=== PATIENT | male | born 1940 | race Caucasian/White ===

== ENCOUNTER 2016-09-29 17:52 | Emergency (ER) | payer OTHER ==
[~2016-09-29] VITALS: Ht 172.7 cm; Wt 70.3 kg
--- NOTE | 2016-09-29 17:52 | NUR ---
Patient was BIBA and taken to bed 07 via gurney per EMS.
[2016-09-29 17:55] VITALS: BP 122/70
--- NOTE | 2016-09-29 18:15 | NUR ---
PATIENT PRESENTS TO ED WITH dizziness . PT STATES felt faint when attempting to get out of his car . DENIES N/V/D; SKIN IS PINK/WARM/DRY; AAOX4 WITH EVEN AND STEADY GAIT; LUNGS CLEAR BL; HR EVEN AND REGULAR; PT DENIES ANY FEVER, CP, SOB, OR COUGH AT THIS TIME; PATIENT STATES PAIN OF 0/10 AT THIS TIME; VSS; PATIENT POSITIONED FOR COMFORT; HOB ELEVATED; BEDRAILS UP X2; BED DOWN. ER MD MADE AWARE OF PT STATUS.
[2016-09-29] MEDS ORDERED: NACL 0.9% 500 ML IV ONE (18:40)
--- NOTE | 2016-09-29 18:52 | NUR ---
XRAY AT BEDSIDE.
--- NOTE | 2016-09-29 18:57 | NUR ---
Dr. Machuca evaluating patient at bedside.
[2016-09-29 19:10] LABS: BASOPHILS # (AUTO) 0.1 K/uL (0.00-0.22); EOSINOPHILS # (AUTO) 0.6 K/uL (0-0.4); EOSINOPHILS % (AUTO) 5.4 % (0.0-4.0); HEMATOCRIT 39.6 % (36-52); LYMPHOCYTES % (AUTO) 9.2 % (20.5-51.1); MEAN CORPUSCULAR HEMOGLOBIN 30 pg (27-31); MEAN CORPUSCULAR HGB CONC 33 g/dL (33-37); MEAN CORPUSCULAR VOLUME 91 fL (80-94); MONOCYTES # (AUTO) 1.1 K/uL (0.8-1.0); MONOCYTES % (AUTO) 9.8 % (1.7-9.3); NEUTROPHILS # (AUTO) 7.9 K/uL (1.8-7.7); NEUTROPHILS % (AUTO) 74.6 % (42.2-75.2); PLATELET COUNT (AUTO) 262 K/uL (140-450); RED BLOOD CELL COUNT(AUTO) 4.34 MIL/uL (4.20-6.10); RED CELL DISTRIBUTION WIDTH 16.7 % (11.6-13.7); WHITE BLOOD COUNT (AUTO) 10.7 K/uL (4.8-10.8)
[2016-09-29] MEDS ORDERED: MULTIVITAMIN 1 TAB PO ONE (19:10)
[2016-09-29] MEDS ORDERED: THIAMINE 200 MG/2 ML VIAL IV ONE (19:10)
[2016-09-29 19:26] LABS: ANION GAP 12.5 (8-16); CARBON DIOXIDE 26.4 mmol/L (21-32); CHLORIDE 102 mmol/L (98-107); CREATININE 0.8 mg/dL (0.6-1.3); GLUCOSE 79 mg/dL (74-106); POTASSIUM 3.9 mmol/L (3.5-5.1); SODIUM SERUM 137 mmol/L (136-145); UREA NITROGEN, BLOOD 10 mg/dL (7-18)
[2016-09-29 19:27] LABS: INR 2.3 (0.8-1.2); PARTIAL THROMBOPLASTIN TIME 35.9 secs (22-35.6)
[2016-09-29 19:29] LABS: AMPHETAMINE, URINE NEG. ng/ml (NEG <=1000); BARBITURATE, URINE NEG. ng/ml (NEG <=200); BENZODIAZEPINE, URINE NEG. ng/mL (NEG <=200); CANNABINOID, URINE POS. ng/mL (NEG <=50); COCAINE, URINE NEG. ng/mL (NEG <=300); OPIATE, URINE NEG. ng/mL (NEG <=2000); PHENCYCLIDINE SCREEN,URINE NEG. ng/mL (NEG <=25)
[2016-09-29 19:35] LABS: ALANINE AMINOTRANSFERASE 37 U/L (12-78); ALBUMIN 2.9 g/dL (3.4-5.0); ALKALINE PHOSPHATASE 96 U/L (46-116); ASPARTATE AMINOTRANSFERASE 30 U/L (15-37); TOTAL BILIRUBIN 0.3 mg/dL (0.0-1.0); TOTAL PROTEIN, SERUM 6.7 g/dL (6.4-8.2)
[2016-09-29] MEDS ORDERED: MULTIVITAMIN-12 10 ML, THIAMINE 100 MG, MAGNESIUM SULFATE 50% 2,000 MG, FOLIC ACID 5 MG... IV ONE ×5 (20:20)
[2016-09-29] MEDS ORDERED: MULTIVITAMIN-12 10 ML VIAL IV ONE ×2 (20:24→20:29)
[2016-09-29] MEDS ORDERED: FOLIC ACID 5 MG/ML SYR ONE ×2 (20:25→20:29)
[2016-09-29] MEDS ORDERED: MAGNESIUM SULFATE 50% 1000 MG/2 ML VIAL IV ONE (20:29)
[2016-09-29] MEDS ORDERED: THIAMINE 200 MG/2 ML VIAL ONE (20:29)
[2016-09-29 22:37] VITALS: BP 127/68
--- NOTE | 2016-09-29 22:38 | NUR ---
Patient discharged with v/s stable. Written and verbal after care instructions given and explained. Patient alert, oriented and verbalized understanding of instructions. Ambulatory with steady gait. All questions addressed prior to discharge. ID band removed. Patient advised to follow up with PMD. NO Rx WERE given. Patient educated on indication of medication including possible reaction and side effects. Opportunity to ask questions provided and answered.
[2016-09-30] MEDS ORDERED: FOLIC ACID 1 MG TAB PO SCH (09:00)
== END 2016-09-29 22:37 | disposition home or self-care (01) ==
LOC: MED 17:52
DX: R55 Syncope and collapse (principal); F10.20 Alcohol dependence, uncomplicated; Y90.6 Blood alcohol level of 120-199 mg/100 ml; I10 Essential (primary) hypertension; F17.210 Nicotine dependence, cigarettes, uncomplicated; Z86.718 Personal history of other venous thrombosis and embolism
CPT/HCPCS: 36415; 70450; 71010; 80053; 80305; 81002; 83880; 84484; 85025; 85610; 85730; 93005; 96361; 96365; 96366; 96375; 99285; A9153; G0482; J3411; J3475; J3490; J7030; Q0092

== ENCOUNTER 2019-10-08 06:48 | Emergency (ER) | payer OTHER ==
[~2019-10-08] VITALS: Ht 200.7 cm; Wt 59.0 kg
[2019-10-08 06:58] VITALS: BP 96/50
--- NOTE | 2019-10-08 07:05 | NUR ---
PT TAKEN TO BED 7
--- NOTE | 2019-10-08 07:07 | NUR ---
79 YO MALE BIB SELF C/C OF 910 LEFT FLANK PAIN AND BLOOD IN URINE X9 DAYS. PT STATES THAT HE HAD PROSTATE SURGERY 3 WEEKS AGO. PT STATES THAT HE TOOK OTC IBUPROFEN FOR PAIN WITH NO RELIEF. MED HX: COPD, HTN, "BORDERLINE DIABTETIC" PER PATIENT RX: PRADAXA, BP AND CHOLESTEROL MEDICATIONS - UNABLE TO SAY WHICH RX NKA
--- NOTE | 2019-10-08 07:20 | NUR ---
PATIENT AMBULATED TO RESTROOM
--- NOTE | 2019-10-08 07:22 | NUR ---
GAVE REPORT TO VINI RN FOR CONTINUITY OF CARE
--- NOTE | 2019-10-08 07:30 | NUR ---
Dr. Lemos is evaluating the patient at bedside.
[2019-10-08] MEDS ORDERED: fentaNYL 0.05 MG/ML VIAL IVP ONE (07:35)
[2019-10-08] MEDS ORDERED: NACL 0.9% 1,000 ML IV ONE (07:40)
--- NOTE | 2019-10-08 07:40 | NUR ---
PT. TAKEN TO CT VIA [facility]
--- NOTE | 2019-10-08 07:43 | NUR ---
PATIENT TAKEN TO CT VIA [facility]
[2019-10-08] MEDS ORDERED: cefTRIAXone 1,000 MG VIAL ONE (08:57)
[2019-10-08 09:00] LABS: BASOPHILS % (AUTO) 0.3 % (0.0-2.0); EOSINOPHILS % (AUTO) 0.2 % (0.0-4.0); HEMATOCRIT 35.3 % (36-52); HEMOGLOBIN 11.6 g/dL (12.0-18.0); LYMPHOCYTES # (AUTO) 0.5 K/uL (2.0-11.5); LYMPHOCYTES % (AUTO) 4.9 % (20.5-51.1); MEAN CORPUSCULAR HEMOGLOBIN 31 pg (27-31); MEAN CORPUSCULAR HGB CONC 33 g/dL (33-37); MEAN CORPUSCULAR VOLUME 93.1 fL (80-94); MONOCYTES # (AUTO) 0.7 K/uL (0.8-1.0); MONOCYTES % (AUTO) 6.2 % (1.7-9.3); NEUTROPHILS # (AUTO) 9.4 K/uL (1.8-7.7); NEUTROPHILS % (AUTO) 88.4 % (42.2-75.2); PLATELET COUNT (AUTO) 255 K/uL (140-450); RED CELL DISTRIBUTION WIDTH 15.7 % (11.6-13.7); WHITE BLOOD COUNT (AUTO) 10.6 K/uL (4.8-10.8)
[2019-10-08 09:05] LABS: APPEARANCE,URINE CLOUDY (CLEAR); BILIRUBIN,URINE NEGATIVE (NEGATIVE); BLOOD, URINE 3+ (NEGATIVE); COLOR,URINE YELLOW (YELLOW); LEUKOCYTE ESTERASE ,URINE 3+ (NEGATIVE); NITRITE, URINE POSITIVE (NEGATIVE); PH,URINE 7.5 (5.0-9.0); UGLUCOSE NEGATIVE (NEGATIVE)
[2019-10-08 09:17] LABS: RBC,URINE 20-50 /HPF (0-5); WBC,URINE TOO MANY TO COUNT /HPF (0-5)
[2019-10-08 09:33] LABS: ALBUMIN 2.3 g/dL (3.4-5.0); ANION GAP 15.6 (8-16); ASPARTATE AMINOTRANSFERASE 36 U/L (15-37); CARBON DIOXIDE 22.9 mmol/L (21-32); CHLORIDE 99 mmol/L (98-107); CREATININE 1.5 mg/dL (0.6-1.3); GLUCOSE 140 mg/dL (74-106); POTASSIUM 4.5 mmol/L (3.5-5.1); SODIUM SERUM 133 mmol/L (136-145); TOTAL BILIRUBIN 0.5 mg/dL (0.0-1.0); UREA NITROGEN, BLOOD 32 mg/dL (7-18)
[2019-10-08] MEDS ORDERED: DEXAMETHASONE 4 MG/ML VIAL IVP ONE (09:35)
[2019-10-08] MEDS ORDERED: PROTHROMBIN COMPLEX HUMAN 500 UNITS KIT IV ONE (10:00)
[2019-10-08] MEDS ORDERED: HYDROcodone/APAP 5/325 MG 1 TAB TAB PO ONE (11:05)
[2019-10-08 11:53] VITALS: BP 161/53
--- NOTE | 2019-10-08 11:54 | NUR ---
Patient to be transferred to [facility]. Is being transferred due to . Receiving facility has accepting physician and available space. ER physician has signed transfer form. Patient or responsible democrat has agreed to transfer and signed form. Patient belongings inventoried and will be sent with patient. Copy of nursing notes, lab reports, EKG, Physicians Orders and X-rays to be sent with patient. Report called to at receiving facility. [facility]] ambulance service has been called for transfer. ETA is .
--- NOTE | 2019-10-09 05:36 | NUR ---
RECEIVED A POSITIVE BLOOD CUTLURE RESULT FROM LAB -- GRAM NEGATIVE RODS. DR MONROE MADE AWARE. NO FURTHER ACTION REQUIRED.
== END 2019-10-08 11:54 | disposition short-term general hospital (02) ==
LOC: MED 06:48
DX: I10 Essential (primary) hypertension (principal); S06.5X9A Traumatic subdural hemorrhage with loss of consciousness of unspecified duration, initial encounter; W18.39XA Other fall on same level, initial encounter; C61 Malignant neoplasm of prostate; N39.0 Urinary tract infection, site not specified; R41.0 Disorientation, unspecified; R31.9 Hematuria, unspecified; E11.9 Type 2 diabetes mellitus without complications; J44.9 Chronic obstructive pulmonary disease, unspecified; Z92.21 Personal history of antineoplastic chemotherapy; Y93.89 Activity, other specified; Y92.89 Other specified places as the place of occurrence of the external cause; Y99.8 Other external cause status
CPT/HCPCS: 36415; 70450; 71045; 74176; 80053; 81001; 81002; 83605; 85025; 85610; 85730; 86886; 86900; 86901; 87040; 87086; 87186; 96365; 96367; 96375; 99291; C9132; J0696; J1100; J3010; J7030; Q0092

== ENCOUNTER 2019-10-12 02:58 | Inpatient (IN) | payer OTHER, SELFPAY ==
[~2019-10-12] VITALS: Ht 170.2 cm; Wt 68.5 kg
[2019-10-12 03:03] VITALS: BP 104/46
--- NOTE | 2019-10-12 03:08 | NUR ---
PT AMBULATED TO BED 4.
--- NOTE | 2019-10-12 03:10 | NUR ---
79 Y/O PATIENT PRESENTS TO ER WITH C/O LEFT FLANK PAIN STARTING AT MIDDLE OF BACK TO LEFT FLANK X 10DAYS. 10/10 PAIN, DENIES INJURY, N/V/D; PT STATES HE HAD "PROSTATE SURGERY" 3 OR 4 WEEKS AGO, AND HAS BEEN CONTINENT SINCE. URINE SAMPLE WAS DARK RED. WILL CONTINUE TO MONITOR; SIDERAIL X1. PMH: COPD; LUNG CANCER NKDA
[2019-10-12] MEDS ORDERED: NACL 0.9% 1,000 ML IV ONE ×2 (03:15→06:40)
[2019-10-12] MEDS ORDERED: ONDANSETRON 4 MG/2 ML VIAL IVP ONE (03:20)
[2019-10-12] MEDS ORDERED: MORPHINE SULFATE 4 MG/ML SYR IVP ONE (03:20)
[2019-10-12 03:52] LABS: APPEARANCE,URINE HAZY (CLEAR); BILIRUBIN,URINE 2+ (NEGATIVE); BLOOD, URINE 3+ (NEGATIVE); COLOR,URINE RED (YELLOW); LEUKOCYTE ESTERASE ,URINE 3+ (NEGATIVE); NITRITE, URINE POSITIVE (NEGATIVE); PH,URINE 6.5 (5.0-9.0); UGLUCOSE TRACE (NEGATIVE)
--- NOTE | 2019-10-12 03:55 | NUR ---
PT WENT FOR CT
[2019-10-12 04:00] LABS: BASOPHILS # (AUTO) 0.1 K/uL (0.00-0.22); BASOPHILS % (AUTO) 0.5 % (0.0-2.0); EOSINOPHILS # (AUTO) 0.1 K/uL (0-0.4); EOSINOPHILS % (AUTO) 0.5 % (0.0-4.0); HEMATOCRIT 34.8 % (36-52); HEMOGLOBIN 11.4 g/dL (12.0-18.0); LYMPHOCYTES # (AUTO) 0.9 K/uL (2.0-11.5); LYMPHOCYTES % (AUTO) 4.8 % (20.5-51.1); MEAN CORPUSCULAR HEMOGLOBIN 30 pg (27-31); MEAN CORPUSCULAR HGB CONC 33 g/dL (33-37); MONOCYTES # (AUTO) 0.9 K/uL (0.8-1.0); MONOCYTES % (AUTO) 5.1 % (1.7-9.3); NEUTROPHILS % (AUTO) 89.1 % (42.2-75.2); PLATELET COUNT (AUTO) 300 K/uL (140-450); RED BLOOD CELL COUNT(AUTO) 3.78 MIL/uL (4.20-6.10)
[2019-10-12 04:36] LABS: RBC,URINE TOO NUMEROUS TO COUN /HPF (0-5); WBC,URINE 80-100 /HPF (0-5)
[2019-10-12 04:39] LABS: ALBUMIN 2.3 g/dL (3.4-5.0); ANION GAP 12.3 (8-16); ASPARTATE AMINOTRANSFERASE 37 U/L (15-37); CARBON DIOXIDE 23.1 mmol/L (21-32); CHLORIDE 97 mmol/L (98-107); CREATININE 1.5 mg/dL (0.6-1.3); GLUCOSE 122 mg/dL (74-106); LIPASE 38 U/L (73-393); POTASSIUM 4.4 mmol/L (3.5-5.1); SODIUM SERUM 128 mmol/L (136-145); TOTAL BILIRUBIN 0.6 mg/dL (0.0-1.0); UREA NITROGEN, BLOOD 34 mg/dL (7-18)
--- NOTE | 2019-10-12 04:43 | NUR ---
BLADDER SCAN DONE. 639ML IN BLADDER
[2019-10-12] MEDS ORDERED: cefTRIAXone 1,000 MG VIAL ONE (05:26)
[2019-10-12] MEDS ORDERED: ONDANSETRON 4 MG/2 ML VIAL IM/IVP PRN (06:20)
[2019-10-12] MEDS ORDERED: ACETAMINOPHEN 325 MG TAB PO PRN (06:20)
[2019-10-12] MEDS ORDERED: DOCUSATE SODIUM 100 MG GELCAP PO PRN ×2 (06:20→09:55)
[2019-10-12 07:25] VITALS: BP 100/67
--- NOTE | 2019-10-12 07:25 | NUR ---
RECEIVED PT. FROM ER NURSE. PT. IS AWAKE AND ALERT. PT. IS ABLE TO AMBULATE TOWARDS BED. IV ON THE RIGHT ARM 22G, PATENT AND ASYMPTOMATIC. PT. IS ON ROOM AIR WITH O2 STAT OF 100%. PT. COMPLAINS OF PAIN 8/10 FROM LEFT FLANK PAIN, WILL MEDICATE. REVIEWED PLAN OF CARE. PT. VERBALIZES UNDERSTANDING. CALL LIGHT WITHIN REACH. WILL CONTINUE TO MONITOR.
--- NOTE | 2019-10-12 07:25 | NUR ---
Patient will be admitted to care of DR. SMITH. Admited to MED SURG. Will go to room 105 B. Belongings list completed. Report to AUSTYN RANKIN.
[2019-10-12 07:35] LABS: BARBITURATE, URINE NEGATIVE ng/ml (NEG <=200); BENZODIAZEPINE, URINE NEGATIVE ng/mL (NEG <=200); CANNABINOID, URINE NEGATIVE ng/mL (NEG <=50); COCAINE, URINE NEGATIVE ng/mL (NEG <=300); OPIATE, URINE NEGATIVE ng/mL (NEG <=2000); PHENCYCLIDINE SCREEN,URINE NEGATIVE ng/mL (NEG <=25)
--- NOTE | 2019-10-12 08:00 | NUR ---
DR. JETT IS BY THE BEDSIDE, CONFIRMED PAIN MEDICATIONS, WILL FOLLOW THROUGH.
[2019-10-12] MEDS ORDERED: LIDOCAINE VISCOUS 2% 20 ML UDC PO SCH (08:15)
[2019-10-12] MEDS ORDERED: DICYCLOMINE HCL LIQUID 10 MG/5 ML UDC PO SCH (08:15)
[2019-10-12] MEDS ORDERED: ALUMINUM HYD/MAG/SIMETHICONE 30 ML UDC PO SCH (08:15)
[2019-10-12] MEDS: MORPHINE SULFATE 2 MG/ML SYR IVP PRN ×3 (08:18→20:30)
--- NOTE | 2019-10-12 08:18 | NUR ---
IV MORPHINE IVP GIVEN FOR PAIN SCALE OF 8/10 FROM LEFT FLANK PAIN. BP 100/67, HR 55. PT. IS GRIMACING AND SCREAMING ABOUT PAIN. WILL CONTINUE TO MONITOR.
[2019-10-12 08:23] LABS: PHOSPHORUS 3.1 mg/dL (2.5-4.9); THYROID STIMULATING HORMONE 5.85 uIU/mL (0.34-3.74)
[2019-10-12] MEDS ORDERED: LEVOFLOXACIN 500 MG/D5W PREMIX 100 ML IV SCH (09:00)
--- NOTE | 2019-10-12 09:20 | NUR ---
DR. DEL VALLE IS BY THE BEDSIDE. BLADDER SCAN DONE WITH RETENTION AMOUNT OF 800ML. DR. DEL VALLE REQUESTED FOR STEEL CATHETER INSERTION. WILL FOLLOW THROUGH
--- NOTE | 2019-10-12 09:30 | NUR ---
STEEL CATHETER 16F INSERTED BY DR. DEL VALLE. NEW ORDERS FROM DR. DEL VALLE TO IRRIGATE AND BLADDER SCAN PT. OFTEN. WILL FOLLOW THROUGH
[2019-10-12] MEDS ORDERED: TAMS0.4C96 PO (09:31)
[2019-10-12] MEDS ORDERED: BUDE1AER2 IH (09:31)
[2019-10-12] MEDS ORDERED: PRON INH (09:31)
[2019-10-12] MEDS: LACTOBACILLUS RHAMNOSUS GG 1 EACH CAP PO SCH (09:41)
[2019-10-12] MEDS: NACL 0.9% 1,000 ML IV SCH ×2 (09:46→22:56)
[2019-10-12] MEDS ORDERED: ALBUTEROL SULFATE/IPRATROPIU 3 ML SOL IH PRN (09:55)
[2019-10-12] MEDS ORDERED: DABI150C PO (10:00)
[2019-10-12] MEDS ORDERED: SPIMDI INH (10:00)
[2019-10-12] MEDS ORDERED: LOSA25TA43 PO (10:00)
[2019-10-12] MEDS ORDERED: ATOR40TA PO (10:00)
[2019-10-12] MEDS ORDERED: METO25TA PO (10:00)
[2019-10-12] MEDS ORDERED: DOCU-299 PO (10:00)
[2019-10-12] MEDS ORDERED: MULT-153 PO (10:00)
[2019-10-12] MEDS ORDERED: KETOROLAC 15 MG/ML VIAL IM SCH (10:30)
--- NOTE | 2019-10-12 11:10 | NUR ---
DISCHARGE PLANNING: THIS IS A 79 Y/O MALE PATIENT FROM HOME, WHO CAME IN DUE TO LEFT FLANK PAIN AND PAIN IN URINATION. PAST MEDICAL HISTORY INCLUDE LUNG CA, DVT BLE, COPD, DIABETES, HTN. INITIAL DIAGNOSIS OF PYELONEPHRITIS. UROLOGY CONSULT WITH DR. DEL VALLE IN PLACE, NOT SEEN YET. ON ROCEPHIN AND LEVOFLOXACIN. ABD/PELVIS CT SHOWED SEVERAL TINY RENAL CALCIFICATIONS. CXR NEGATIVE. DC PLAN BACK TO HOME ONCE STABLE. Addendum: 10/14/19 at 1133 by Mary Jason CM POST OP DAY #1 S/P CYSTOSCOPY, TURP BY DR. DEL VALLE 10/13/2019. FC IN PLACE. CURRENT LABS INCLUDE WBC 14.4, H/H 9.8/30.1, NA/K 133/4.4, BUN/CREA 18/1.1 AND LACTIC ACID 2.0. DC PLAN BACK TO HOME ONCE STABLE. Addendum: 10/16/19 at 1204 by Mary Jason CM LATE ENTRY FOR 10/15/2019: RECEIVED AN ORDER FOR SNF EVALUATION. CXR SHOWED THERE HAS BEEN INTERVAL DEVELOPMENT OF BILATERAL PERIPHERAL HAZY OPACITIES. SUGGEST CORRELATION WITH COVID 19. DR JETT MADE AWARE. DC ORDERED CANCELLED. PLACED ON ISOLATION AND TESTED PATIENT FOR COVID. Addendum: 10/16/19 at 1208 by Mary Jason CM COVID TEST PENDING. ON O2 AT 2 LPM/NC, O2 SAT 100%. ON ELIQUIS, ROCEPHIN, FLOMAX. NA/K 133/4.6, BUN/CREA 22/1.1 AND ALB 1.6. PULMO UROLOGY AND ID CONSULTS IN PLACE. Addendum: 10/21/19 at 1129 by Mary Jason CM RECEIVED AN ORDER FOR SNF FOR IV ANTIBIOTICS AND PT. REFERRAL SENT TO [facility] AND [facility]. Addendum: 10/21/19 at 1206 by Mary Jason PER MOO SANDOVAL [facility] THEY ARE ABLE TO ACCEPT THE PATIENT., WILL CALL ME BACK FOR ROOM NUMBER AND ACCEPTING DOCTOR. Addendum: 10/21/19 at 1355 by Mary Jason 1140: DC PLANNING DISCUSSED WITH PATIENT AND IS IN AGREEMENT. IMM AND CHOICE OF VENDOR DISCUSSED WITH HIM WELL, NO QUESTIONS AND CONCERNS AT THIS TIME. ORIGINAL PLACED IN THE CHART AND COPY PROVIDED TO THE PATIENT. Addendum: 10/21/19 at 1405 by Mary Jason CM PER MOO SANDOVAL [facility], PATIENT WILL GO TO ROOM 12A UNDER DR. RUSH AND THEY WILL ARRANGE TRANSPORT. SCADA ENGINEER WILL BE BETWEEN [phone]. PRIMARY AUSTYN ESCALONA MADE AWARE. DR. JETT MADE AWARE.
[2019-10-12 11:39] LABS: ANION GAP 12.5 (8-16); CARBON DIOXIDE 22.6 mmol/L (21-32); CHLORIDE 98 mmol/L (98-107); CREATININE 1.4 mg/dL (0.6-1.3); GLUCOSE 144 mg/dL (74-106); POTASSIUM 4.1 mmol/L (3.5-5.1); SODIUM SERUM 129 mmol/L (136-145); UREA NITROGEN, BLOOD 31 mg/dL (7-18)
[2019-10-12 11:45] LABS: PROTHROMBIN TIME 12.9 secs (10.8-13.4)
[2019-10-12 12:00] VITALS: BP 127/45
[2019-10-12] MEDS: NICOTINE TRANSD SYS 7 MG/24 HR PATCH TD SCH (12:25)
--- NOTE | 2019-10-12 15:01 | NUR ---
PAIN MEDICATIONS GIVEN FOR PAIN OF 8/10 LEFT FLANK PAIN, PT. IS GRIMACING AND SCREAMING ABOUT PAIN. BP 127/45, HR 65. BLADDER IRRIGATED, NO SIGNS OF DISTRESS NOTED WILL CONTINUE TO MONITOR.
[2019-10-12 16:00] VITALS: BP 135/52
[2019-10-12] MEDS ORDERED: hydrALAZINE 20 MG/ML VIAL IVP PRN (16:40)
--- NOTE | 2019-10-12 18:30 | NUR ---
PAIN MEDICATION GIVEN FOR STOMACH PAIN OF 8/10. NO SIGNS OF DISTRESS NOTED. WILL CONTINUE TO MONITOR.
[2019-10-12] MEDS: HYDROcodone/APAP 5/325 MG 1 TAB TAB PO PRN (18:34)
--- NOTE | 2019-10-12 19:10 | NUR ---
ENDORSED TO TABLE HAND NURSEBOBBY, FOR CONTINUITY OF CARE.
[2019-10-12] MEDS: BUDESONIDE 0.25 MG/2 ML NEBU INH SCH (19:30)
[2019-10-12] MEDS: ALBUTEROL SULFATE/IPRATROPIU 3 ML SOL IH SCH (19:30)
[2019-10-12 20:00] VITALS: BP 139/55
--- NOTE | 2019-10-12 20:15 | NUR ---
PATIENT MOANING IN PAIN, CHECKED W/ BLADDER SCAN HIGHEST VOLUME 104 ML.
--- NOTE | 2019-10-12 20:35 | NUR ---
PT IRRIGATED WITH STERILE SALINE SOLUTION AND ASPIRATED BACK, WITH CLEAR URINE AND BLOODISH TINGE WHEN ASPIRATED. WILL GIVE MORPHINE
[2019-10-12] MEDS ORDERED: NON-FORMULARY ITEM (Tiotropium Bromide* (Spiriva Mdi*) 2 PUFF) INH SCH (21:00)
[2019-10-12] MEDS ORDERED: NON-FORMULARY ITEM (Budesonide/Formoterol Fumarate* (Symbicort 80-4.5 Mcg Inhaler*) 2 PUFF IH SCH (21:00)
[2019-10-12] MEDS ORDERED: DABIGATRAN ETEXILATE MESYLAT 75 MG CAP PO SCH (21:00)
[2019-10-12] MEDS ORDERED: METOPROLOL 50 MG TAB PO SCH (21:00)
[2019-10-12] MEDS: METOPROLOL 50 MG TAB PO SCH (22:20)
[2019-10-12] MEDS: TAMSULOSIN 0.4 MG CAP PO SCH (22:21)
[2019-10-12] MEDS: ATORVASTATIN 20 MG TAB PO SCH (22:22)
--- NOTE | 2019-10-12 23:35 | NUR ---
PT AGAIN IN PAIN 04/04 AND ASKING FOR PAIN MED; CHECKED 1ST BLADDER HIGHEST VOLUME 14 ML.IRRIGATED W/ NORMAL SALINE MANUALLY AND ASPIRATED BACK, URINE W/ BLOOD TINGE.
[2019-10-12] MEDS: ZOLPIDEM 5 MG TAB PO PRN (23:42)
--- NOTE | 2019-10-12 23:42 | NUR ---
PT SAID HE CAN'T SLEEP, REQUESTED FOR SLEEPING MEDS. ADMINISTERED KEVYN
[2019-10-13] VITALS: BP 140/60
--- NOTE | 2019-10-13 00:09 | NUR ---
RANDY HOGAN FIELD WORKER, REQUESTED FOR SCD FOR PT
[2019-10-13] MEDS: MORPHINE SULFATE 2 MG/ML SYR IVP PRN ×2 (00:32→11:27)
--- NOTE | 2019-10-13 00:32 | NUR ---
ADMINISTERED PAIN MEDS FOR PAIN C.O EARLIER 04/04 UNRELIEVED BY BLADDER IRRIGATION.
--- NOTE | 2019-10-13 01:01 | NUR ---
PATIENT C/O OF UPSET STOMACH. PT ACCDG TO HIM HAS NOT BEEN EATING WELL, AND ONLY DRANK JUICE. INFORMED DR. MURILLO
[2019-10-13] MEDS ORDERED: CALCIUM CARBONATE 500 MG TAB.CHEW PO SCH (01:05)
[2019-10-13] MEDS: CALCIUM CARBONATE 500 MG TAB.CHEW ONE ×2 (01:51→01:52)
[2019-10-13 04:00] VITALS: BP 130/49
--- NOTE | 2019-10-13 04:00 | NUR ---
PT SLEEPING, NO COMPLAINTS, NO SOB, NO RESPIRATORY DISTRESS
[2019-10-13 05:21] LABS: BASOPHILS % (AUTO) 0.1 % (0.0-2.0); EOSINOPHILS # (AUTO) 0.1 K/uL (0-0.4); EOSINOPHILS % (AUTO) 0.4 % (0.0-4.0); HEMATOCRIT 30.2 % (36-52); LYMPHOCYTES # (AUTO) 0.5 K/uL (2.0-11.5); LYMPHOCYTES % (AUTO) 2.9 % (20.5-51.1); MEAN CORPUSCULAR HEMOGLOBIN 30 pg (27-31); MEAN CORPUSCULAR HGB CONC 33 g/dL (33-37); MEAN CORPUSCULAR VOLUME 91.9 fL (80-94); MONOCYTES # (AUTO) 0.8 K/uL (0.8-1.0); MONOCYTES % (AUTO) 5.4 % (1.7-9.3); NEUTROPHILS # (AUTO) 14.1 K/uL (1.8-7.7); NEUTROPHILS % (AUTO) 91.2 % (42.2-75.2); PLATELET COUNT (AUTO) 237 K/uL (140-450); RED BLOOD CELL COUNT(AUTO) 3.28 MIL/uL (4.20-6.10); RED CELL DISTRIBUTION WIDTH 15.9 % (11.6-13.7); WHITE BLOOD COUNT (AUTO) 15.5 K/uL (4.8-10.8)
--- NOTE | 2019-10-13 06:00 | NUR ---
PT STILL SLEEPING BUT CAN BE AWAKENED BY VERBAL STIMULI, PT HAS NO COMPLAINTS OF PAIN. WILL CONTINUE TO MONITOR
--- NOTE | 2019-10-13 06:24 | NUR ---
PATIENT HAS BEEN SCREENED AND CATEGORIZED MODERATE NUTRITION RISK. PATIENT WILL BE SEEN WITHIN 3-5 DAYS OF ADMISSION. 10/15/19-10/17/19 ASHA PATRICK MS, RDN
[2019-10-13 06:25] LABS: ANION GAP 8.1 (8-16); CARBON DIOXIDE 24.5 mmol/L (21-32); CHLORIDE 101 mmol/L (98-107); CREATININE 1.1 mg/dL (0.6-1.3); GLUCOSE 143 mg/dL (74-106); POTASSIUM 4.6 mmol/L (3.5-5.1); SODIUM SERUM 129 mmol/L (136-145); UREA NITROGEN, BLOOD 23 mg/dL (7-18)
--- NOTE | 2019-10-13 06:55 | NUR ---
PT STILL SLEEPING, WILL ENDORSE TO NEXT SHIFT
--- NOTE | 2019-10-13 07:20 | NUR ---
RECEIVED PT. FROM PHOTORADIO OPERATOR NURSEBOBBY. PT. IS AWAKE AND ALERT, AAOX4. PT. VERBALIZES NO PAIN AT THE MOMENT. IV ON THE RIGHT ARM 22G WITH NS RUNNING AT 100ML/HR, PATENT AND ASYMPTOMATIC. PT. IS ON ROOM AIR WITH O2 STAT OF 96%. STEEL CATHETER IN PLACE WITH OUT OF 500ML, APPEARED HEMATURIC AND SEDIMENTATION OF CLOTS OBSERVED. REVIEWED PLAN OF CARE. PT. VERBALIZES UNDERSTANDING. CALL LIGHT WITHIN REACH. WILL CONTINUE TO MONITOR.
[2019-10-13 08:00] VITALS: BP 126/51
--- NOTE | 2019-10-13 08:00 | NUR ---
DR. DEL VALLE IS BY THE BEDSIDE. NEW ORDERS FOR PT. TO BE NPO AND CONSENT FOR PROCEDURE TO BE SIGNED. WILL FOLLOW THROUGH.
[2019-10-13] MEDS: ALBUTEROL SULFATE/IPRATROPIU 3 ML SOL IH SCH ×2 (08:02→20:34)
[2019-10-13] MEDS: BUDESONIDE 0.25 MG/2 ML NEBU INH SCH ×2 (08:02→20:34)
--- NOTE | 2019-10-13 08:20 | NUR ---
PT. SIGNED CONSENT FORM OF PROCEDURE. PT. MADE AWARE OF PROCEDURE AND THE RISKS AND BENEFITS. PT. VERBALIZES UNDERSTANDING. WILL CONTINUE TO MONITOR.
[2019-10-13] MEDS ORDERED: LEVOFLOXACIN 250 MG/D5 PREMIX 50 ML IV SCH (09:00)
[2019-10-13] MEDS ORDERED: LOSARTAN 25 MG TAB PO SCH (09:00)
[2019-10-13] MEDS: NICOTINE TRANSD SYS 7 MG/24 HR PATCH TD SCH (09:47)
[2019-10-13] MEDS: DEXT 5% /NACL 0.9% 1,000 ML IV SCH ×3 (09:48→22:55)
[2019-10-13] MEDS: MULTIVITAMIN 1 TAB PO SCH (09:49)
[2019-10-13] MEDS: LACTOBACILLUS RHAMNOSUS GG 1 EACH CAP PO SCH (09:49)
[2019-10-13] MEDS: LOSARTAN 25 MG TAB PO SCH (09:50)
--- NOTE | 2019-10-13 09:50 | NUR ---
MORNING MEDICATIONS GIVEN. BP 126/51, HR 65. NO SIGNS OF DISTRESS NOTED. WILL CONTINUE TO MONITOR.
[2019-10-13] MEDS: METOPROLOL 50 MG TAB PO SCH ×2 (09:51→20:41)
--- NOTE | 2019-10-13 11:20 | NUR ---
PT. COMPLAINS OF LEFT FLANK PAIN /. PT. IS GRIMACING AND SHOUTING OUT DUE TO PAIN. PT. IS BLADDER SCANNED AND WITH RETENTION VOLUME OF 35ML. BLADDER IS IRRIGATED UNTIL URINE OUTPUT IS CLEAR. WILL MEDICATE FOR PAIN.
--- NOTE | 2019-10-13 11:28 | NUR ---
PRN MORPHINE IVP GIVEN FOR PAIN SCALE OF 10/10, WITH LEFT FLANK PAIN. BP 136/50, HR 77. WILL CONTINUE TO MONITOR
[2019-10-13 12:00] VITALS: BP 131/46
--- NOTE | 2019-10-13 13:45 | NUR ---
PT. COMPLAINS OF LEFT FLANK PAIN 6/. PT. IS GRIMACING AND GUARDING THE AREA. WILL MEDICATE.
[2019-10-13] MEDS: HYDROcodone/APAP 5/325 MG 1 TAB TAB PO PRN (13:47)
--- NOTE | 2019-10-13 13:50 | NUR ---
PAIN MEDICATION GIVEN FOR LEFT FLANK PAIN OF 6/10. PT. IS BLADDER SCANNED WITH RETENTION VOLUME OF 50ML, BLADDER IS IRRIGATED AND URINE OUTPUT IS BECOMING CLEAR. BP 159/60, HR 62. WILL CONTINUE TO MONITOR.
--- NOTE | 2019-10-13 15:00 | NUR ---
REMOVED PT'S JEWELRY AND UNDERGARMENTS AND CLEANED PT. FOR PROCEDURE. WILL CONTINUE TO MONITOR.
[2019-10-13 16:00] VITALS: BP 124/49
--- NOTE | 2019-10-13 16:43 | NUR ---
PT. LEFT FOR PROCEDURE IN THE OR.
[2019-10-13] MEDS ORDERED: LIDOCAINE 2% 100 MG/5 ML SYR IVP ONE (16:46)
[2019-10-13] MEDS ORDERED: PROPOFOL 200 MG/20 ML VIAL IV ONE (16:46)
[2019-10-13] MEDS ORDERED: fentaNYL 0.05 MG/ML VIAL ONE (16:46)
[2019-10-13] MEDS ORDERED: ePHEDrine 50 MG/ML VIAL ONE (16:46)
[2019-10-13] MEDS ORDERED: SEVOFLURANE 250 ML BTL INH ONE (16:46)
[2019-10-13] MEDS ORDERED: HYDROmorphone 1 MG/ML AMP IVP PRN (17:25)
[2019-10-13] MEDS ORDERED: ONDANSETRON 4 MG/2 ML VIAL IVP PRN (17:25)
--- NOTE | 2019-10-13 18:50 | NUR ---
PT. IS BACK IN THE ROOM. PT. IS PLACED ON O2 2L VIA NC WITH O2 STAT OF 97%. NO SIGNS OF DISTRESS NOTED. STEEL CATHETER IS 22G [address] L[address] CLEAR, YELLOW URINE OUTPUT. DINNER TRAY GIVEN TO PT. WILL CONTINUE TO MONITOR.
--- NOTE | 2019-10-13 19:30 | NUR ---
ENDORSED TO [employer] OFFICE INSTRUCTOR NURSE FOR CONTINUITY OF CARE.
--- NOTE | 2019-10-13 19:31 | NUR ---
RECEIVED PT. FROM AM SHIFTCHUCHO. PT. IS AWAKE AND ALERT, AAOX4. PT. VERBALIZES NO PAIN AT THE MOMENT. IVF D5 NS ON THE RIGHT ARM 22G WITH NS RUNNING AT 100ML/HR, PATENT AND ASYMPTOMATIC. PT. IS ON ROOM AIR WITH O2 STAT OF 92%; WITH PRN ORDER OF O2. STEEL CATHETER IN PLACE WITH LIGHT RED CLEAR URINE. REVIEWED PLAN OF CARE. PT. VERBALIZES UNDERSTANDING. CALL LIGHT WITHIN REACH. WILL CONTINUE TO MONITOR.
--- NOTE | 2019-10-13 19:45 | NUR ---
PT STILL EATING DINNER AT THIS TIME. WILL RETURN FOR SCHEDULED BREATHING TREATMENT. NO RESPIRATORY DISTRESS NOTED. WILL CONTINUE TO MONITOR.
[2019-10-13 20:00] VITALS: BP 136/62
[2019-10-13] MEDS: TAMSULOSIN 0.4 MG CAP PO SCH (20:40)
[2019-10-13] MEDS: ATORVASTATIN 20 MG TAB PO SCH (20:41)
--- NOTE | 2019-10-13 20:53 | NUR ---
RECEIVED PATIENT ON ROOM AIR, PULSE OX SAT 95%. SCHEDULED BREATHING TREATMENTS ADMINISTERED. TOLERATED TXs WELL WITHOUT ADVERSE SIDE EFFECTS. ORAL RINSE DONE POST TX. NO ACUTE RESPIRATORY DISTRESS NOTED. PT MADE AWARE OF ORDERED MEDICATION FREQUENCY ADN INSTRUCTED TO CALL NEEDED. WILL CONTINUE TO MONITOR.
--- NOTE | 2019-10-13 21:00 | NUR ---
HEALTH TEACHINGS GIVEN TO PT RE: MEDICATIONS. PT VERBALIZED UNDERSTANDING
--- NOTE | 2019-10-13 23:00 | NUR ---
PT C/O NOT ABLE TO SLEEP WILL GIVE SLEEP MEDS ORDERED AND PT ALSO C/O OF STOMACH HYPERACIDITY/GAS WILL INFORM DR. MURILLO. SHE SAID SHE WILL ORDER TUMS
[2019-10-13] MEDS: ZOLPIDEM 5 MG TAB PO PRN (23:11)
[2019-10-13] MEDS: CALCIUM CARBONATE 500 MG TAB.CHEW PO PRN (23:26)
[2019-10-14] VITALS: BP 118/51
--- NOTE | 2019-10-14 00:08 | NUR ---
GAVE HEALTH TEACHINGS TO PT TO TURN FROM SIDE TO SIDE. AND TO MOVE HIS LEGS. HE REFUSED TO WEAR HIS SCD DEVICE, HE SIAD IT'S UNCOMFORTABLE. EXPLAINED THE RISKS AND BENEFITS, PT VERBALIZED UNDERSTANDING.
--- NOTE | 2019-10-14 02:34 | NUR ---
PT SLEEPING,BUT EASILY AWAKENED BY VERBAL STIMULI, NO COMPLAINTS AT THIS TIME, NO SOB, NO RESPIRATORY DISTRESS
--- NOTE | 2019-10-14 03:09 | NUR ---
PT C/O OF ABDOMINAL PAIN UNRELATED TO THE PYELONEPHRITIS, PROSTATE CONDITION HE HAS, HE SAID ABDOMINAL PAIN IS CRAMPING. 01/02. WILL INFORM
[2019-10-14] MEDS ORDERED: DICYCLOMINE 10 MG CAP PO SCH (03:10)
--- NOTE | 2019-10-14 03:11 | NUR ---
DR. MURILLO INFORMED PAIN ON THE ABDOMEN MID SECTION. CRAMPING. SHE SAID TO GIVE MOPRHINE FIRST, AND SHE WILL ORDER BENTYL.
[2019-10-14] MEDS: MORPHINE SULFATE 2 MG/ML SYR IVP PRN ×5 (03:16→23:52)
[2019-10-14 04:00] VITALS: BP 130/49
[2019-10-14] MEDS: NACL 0.9% 1,000 ML IV SCH (06:45)
[2019-10-14 06:55] LABS: HEMATOCRIT 30.1 % (36-52); HEMOGLOBIN 9.8 g/dL (12.0-18.0); MEAN CORPUSCULAR HEMOGLOBIN 30 pg (27-31); MEAN CORPUSCULAR HGB CONC 33 g/dL (33-37); MEAN CORPUSCULAR VOLUME 92.1 fL (80-94); PLATELET COUNT (AUTO) 233 K/uL (140-450); RED BLOOD CELL COUNT(AUTO) 3.26 MIL/uL (4.20-6.10); WHITE BLOOD COUNT (AUTO) 14.4 K/uL (4.8-10.8)
[2019-10-14 06:59] LABS: ANION GAP 11.6 (8-16); CARBON DIOXIDE 24.8 mmol/L (21-32); CHLORIDE 101 mmol/L (98-107); CREATININE 1.1 mg/dL (0.6-1.3); GLUCOSE 208 mg/dL (74-106); POTASSIUM 4.4 mmol/L (3.5-5.1); SODIUM SERUM 133 mmol/L (136-145); UREA NITROGEN, BLOOD 18 mg/dL (7-18)
--- NOTE | 2019-10-14 07:20 | NUR ---
RECEIVED ENDORSEMENT FROM DAY SHIFT NURSE. PT LYING IN BED. A&OX4. WITH C/O ACHING PAIN ON RIGHT FLANK 02/02, NO SOB, RESPIRATIONS ARE EVEN AND UNLABORED, ON RA. IV RFA 20G INTACT AND PATENT. RUNNING ON D5NS 100CC. REVIEWED PLAN OF CARE WITH PT. VERBALIZED UNDERSTANDING. SAFETY MEASURES IN PLACE, BED IN LOW POSITION. TELE MONITOR ATTACHED. CALL LIGHT WITHIN REACH. WILL CONTINUE TO MONITOR.
[2019-10-14] MEDS: ALBUTEROL SULFATE/IPRATROPIU 3 ML SOL IH SCH ×2 (07:45→19:29)
[2019-10-14] MEDS: BUDESONIDE 0.25 MG/2 ML NEBU INH SCH ×2 (07:45→19:54)
--- NOTE | 2019-10-14 07:45 | NUR ---
AWAKE AND ALERT VERBALLY RESPONSIVE TACHYPNEIC C/O ABDOMINAL/BLADDER PAIN RAMIRO/RN AT BEDSIDE FOR PAIN MANAGEMENT
--- NOTE | 2019-10-14 07:52 | NUR ---
MORPHINE IVP GIVEN ORDERED FOR LEFT FLANK ACHING PAIN 02/02. WILL REASSESS IN 1 HOUR
[2019-10-14 08:00] VITALS: BP 142/57
[2019-10-14] MEDS: MULTIVITAMIN 1 TAB PO SCH (08:24)
[2019-10-14] MEDS: LOSARTAN 25 MG TAB PO SCH (08:24)
[2019-10-14] MEDS: METOPROLOL 50 MG TAB PO SCH ×2 (08:24→20:40)
[2019-10-14] MEDS: LACTOBACILLUS RHAMNOSUS GG 1 EACH CAP PO SCH (08:24)
[2019-10-14] MEDS: NICOTINE TRANSD SYS 7 MG/24 HR PATCH TD SCH (08:25)
--- NOTE | 2019-10-14 08:35 | NUR ---
DUE MORNING MEDS GIVEN. IN STABLE CONDITION
[2019-10-14 08:52] LABS: BASOPHILS % (MANUAL) 0 % (0-2); EOSINOPHILS % (MANUAL) 0 % (0-4); LYMPHOCYTES % (MANUAL) 2 % (20-46); MONOCYTES % (MANUAL) 2 % (5-12)
--- NOTE | 2019-10-14 10:55 | NUR ---
PT IN BED WATCHING TV. NO C/O PAIN, NO SOB, TELEMONITOR IN PLACE
[2019-10-14 12:00] VITALS: BP 136/66
[2019-10-14] MEDS: CALCIUM CARBONATE 500 MG TAB.CHEW PO PRN (13:11)
--- NOTE | 2019-10-14 13:15 | NUR ---
MORPHINE IVP GIVEN ORDERED FOR LEFT FLANK ACHING PAIN 02/02. WILL REASSESS IN 1 HOUR
--- NOTE | 2019-10-14 13:24 | NUR ---
Late entry. Confirmed with RN that 0.9 NS IV completed at 0730
--- NOTE | 2019-10-14 15:16 | NUR ---
PT IN BED ASLEEP. NO APPARENT DISTRESS. WILL CONTINUE TO MONITOR
[2019-10-14 16:00] VITALS: BP 141/60
--- NOTE | 2019-10-14 18:00 | NUR ---
MORPHINE IVP GIVEN ORDERED FOR LEFT FLANK ACHING PAIN 02/02. WILL REASSESS IN 1 HOUR
--- NOTE | 2019-10-14 19:05 | NUR ---
ENDORSED TO NIGHT RN FOR CONTINUITY OF CARE. IN STABLE CONDITION
--- NOTE | 2019-10-14 19:05 | NUR ---
RECEIVED REPORT FORM RAMIRO RN DAYSHIFT NURSE AT BEDSIDE FOR CONTINUITY OF CARE, PT IN STABLE CONDITION.
[2019-10-14 20:00] VITALS: BP 154/57
--- NOTE | 2019-10-14 20:00 | NUR ---
PT SITTING UP IN BED AOX4 WITH N/S RUNNING AT 10 TO KVO VIA R FA 22G. PT ALSO HAS A STEEL CATHETER INSERTED DRAINING MEGHAN URINE A VERY SMALL AMOUNT OF BLOOD CLOT NOTED AT THE TIP OF THE PENIS NO ACTIVE BLEEDING. PT V/S FOLLOWS: T 98.7 P 56 R 18 B/P 154/57 02 100% ALL UNIVERSAL FALLS PRECAUTIONS IN PLACE. AND ALL REQUESTED NEEDS ATTENDED BY STAFF.
[2019-10-14] MEDS ORDERED: KETOROLAC 30 MG/ML VIAL IVP SCH (20:10)
[2019-10-14] MEDS: TAMSULOSIN 0.4 MG CAP PO SCH (20:37)
[2019-10-14] MEDS: ATORVASTATIN 20 MG TAB PO SCH (20:38)
--- NOTE | 2019-10-14 21:00 | NUR ---
PT C/O 03/05 PAIN IN ABDOMEN AND LEFT FLANK, SPOKE WITH RESIDENT MD RIOS, WHOM ORDERED A X1 DOSE OF 30MG TORADOL FOR PAIN RELIEF. PT ALSO GIVEN ORDERED FLOMAX, LIPITOR AND LOPRESSOR. EDUCATION REGARDING MEDICATION INCLUDING SIDE EFFECTS PROVIDED AT BEDSIDE. ALL REQUESTED NEEDS ATTENDED AND ALL UNIVERSAL FALLS PRECAUTIONS IN PLACE.
[2019-10-15] VITALS: BP 121/60
--- NOTE | 2019-10-15 | NUR ---
PT IN BED C/O OF SEVERE PAIN IN LEFT FLANK, WAS GIVEN IVP MORPHINE FOR 7/10 PAIN. V/S FOLLOWS: T 99.5 P 91 R 18 B/P 121/60 02 94% ON ROOM AIR. ALL REQUESTED NEEDS ATTENDED AND ALL FLUIDS RUNNING ORDERED, STEEL CATHETER INTACT DRAINING MEGHAN YELLOW URINE NO BLOOD CLOTS NOTED. SCD'S IN PLACE FOR DVT PREVENTION AND ALL UNIVERSAL FALLS PROTOCOL IN PLACE.
[2019-10-15] MEDS: NACL 0.9% 1,000 ML IV SCH (02:12)
[2019-10-15 04:00] VITALS: BP 148/57
--- NOTE | 2019-10-15 04:00 | NUR ---
PT AWAKE SITTING UP IN BED WATCHING TV, NO C/O VOICED OF PAIN OR DISTRESS.V/S FOLLOWS: T 97.8 P 97 R 18 B/P 148/57 02 97% ON ROOM AIR. STEEL CATHETER IN PLACE AND DRAINING YELLOW URINE . PT CONTINUES TO RUNNING N/S ORDERED. ALL REQUESTED ATTENDED AND ALL UNIVERSAL PRECAUTIONS IN PLACE.
[2019-10-15] MEDS: BUDESONIDE 0.25 MG/2 ML NEBU INH SCH (06:30)
[2019-10-15] MEDS: ALBUTEROL SULFATE/IPRATROPIU 3 ML SOL IH SCH (06:30)
[2019-10-15] MEDS ORDERED: DEXTROSE 50% 50 ML SYR IVP PRN (06:45)
--- NOTE | 2019-10-15 07:25 | NUR ---
RECEIVED BEDSIDE REPORT FROM STAPLE LASTER NURSE REGINALDO FOR CONTINUITY OF CARE. PT IS AAOX4 AND AWAKE ON BED. RESPIRATION EVEN AND UNLABORED ON RA. DENIED PAIN, SOB AND DIZZINESS. PT ASKED WHAT TIME IS BREAKFAST SERVING, EXPLAINED THAT AROUND [phone], PT AWARE. NO SIGNS OF DISTRESS NOTED. IV ON RFA 22G, CLEAN AND INTACT, INFUSING NS AT 10 ML/HR. SKIN CLEAN AND INTACT. STEEL CATHETER IN PLACE AND DRAINING YELLOW URINE WITH GRAVITY. SAFETY MEASURES IN PLACE. TELE MONITOR ATTACHED. BED IN LOW POSITION AND CALL LIGHT WITHIN REACH. INSTRUCTED PT TO USE THE CALL LIGHT FOR ANY ASSISTANCE AND PT AWARE.
[2019-10-15] MEDS: INSULIN LISPRO SLIDING SCALE 100 UNITS/ML VIAL SUBQ PRN ×3 (07:42→17:36)
[2019-10-15] MEDS: BLOOD GLUCOSE MONITORING 1 DEV DEV FS SCH ×4 (07:42→21:00)
[2019-10-15 07:43] LABS: HEMATOCRIT 30.4 % (36-52); HEMOGLOBIN 9.9 g/dL (12.0-18.0); MEAN CORPUSCULAR HEMOGLOBIN 30 pg (27-31); MEAN CORPUSCULAR HGB CONC 33 g/dL (33-37); MEAN CORPUSCULAR VOLUME 92.9 fL (80-94); PLATELET COUNT (AUTO) 227 K/uL (140-450); RED BLOOD CELL COUNT(AUTO) 3.27 MIL/uL (4.20-6.10); RED CELL DISTRIBUTION WIDTH 16.1 % (11.6-13.7); WHITE BLOOD COUNT (AUTO) 12.9 K/uL (4.8-10.8)
[2019-10-15 07:48] LABS: ANION GAP 12.2 (8-16); CARBON DIOXIDE 23.2 mmol/L (21-32); CHLORIDE 101 mmol/L (98-107); CREATININE 1.2 mg/dL (0.6-1.3); GLUCOSE 122 mg/dL (74-106); POTASSIUM 4.4 mmol/L (3.5-5.1); SODIUM SERUM 132 mmol/L (136-145); UREA NITROGEN, BLOOD 21 mg/dL (7-18)
[2019-10-15 08:00] VITALS: BP 147/58
[2019-10-15] MEDS: NICOTINE TRANSD SYS 7 MG/24 HR PATCH TD SCH (09:09)
[2019-10-15] MEDS: METOPROLOL 50 MG TAB PO SCH ×2 (09:10→22:11)
[2019-10-15] MEDS: LACTOBACILLUS RHAMNOSUS GG 1 EACH CAP PO SCH (09:10)
[2019-10-15] MEDS: LOSARTAN 50 MG TAB PO SCH (09:10)
[2019-10-15] MEDS: MULTIVITAMIN 1 TAB PO SCH (09:11)
--- NOTE | 2019-10-15 09:12 | NUR ---
CHECKED BP PRIOR TO MED ADMINISTER, BP 126/81 PULSE 95. ADMINISTERED MEDS PER MD ORDER, MEDS EDUCATION PROVIDED TO PATIENT AND PATIENT VERBALIZED UNDERSTANDING. PT TOLERATED PO MEDS WELL. OBTAINED CONSENT FOR AUTHORIZATION FOR USE OR DISCLOSURE OF HEALTH INFORMATION AND PT WAS AWARE. PT AWAKE AND WATCHING TV ON BED. NO SIGNS OF DISTRESS NOTED. TELE MONITOR ATTACHED. SAFETY MEASURES IN PLACE.
[2019-10-15 09:20] LABS: BASOPHILS % (MANUAL) 0 % (0-2); EOSINOPHILS % (MANUAL) 0 % (0-4); LYMPHOCYTES % (MANUAL) 3 % (20-46); MONOCYTES % (MANUAL) 4 % (5-12)
[2019-10-15] MEDS: HYDROcodone/APAP 5/325 MG 1 TAB TAB PO PRN ×3 (09:27→22:49)
--- NOTE | 2019-10-15 09:27 | NUR ---
PT COMPLAINED BACK PAIN 12/03, ADMINISTERED PRN PAIN MED NORCO, MED ED PROVIDED AND PT WAS AWARE. PT AWAKE AND RESTING ON BED AT THIS TIME. NO SIGNS OF DISTRESS NOTED. TELE MONITOR ATTACHED. SAFETY MEASURES IN PLACE.
[2019-10-15] MEDS ORDERED: AZITHROMYCIN 250 MG TAB PO SCH (10:00)
--- NOTE | 2019-10-15 10:18 | NUR ---
TRANSFERRED PT TO ROOM 128A. ENHANCED PRECAUTION APPLIED AND SIGN POSTED. SAFETY MEASURES IN PLACE.
--- NOTE | 2019-10-15 10:54 | NUR ---
ADMINISTERED SCHEDULED MED PER MD ORDER, MED EDUCATION PROVIDED AND PT SAID OK. EXPLAINED TO PT THAT SHARLENE DREW NEEDED AND APOLOGIZED FOR DISCOMFORT, COLLECTED. DR MONROY WAS TALKING TO PT AT BEDSIDE. NO SIGNS OF DISTRESS NOTED. TELE MONITOR ATTACHED. SAFETY MEASURES IN PLACE. Addendum: 10/15/19 at 1625 by Ora Umana RN DR ULLOA
--- NOTE | 2019-10-15 11:16 | NUR ---
FAX MEDICAL REQUEST PER MD ORDER.
[2019-10-15] MEDS ORDERED: ALBUTEROL HFA MDI 90 MCG/ACTUATION 8 GM INH PRN (11:55)
[2019-10-15 12:00] VITALS: BP 132/61
--- NOTE | 2019-10-15 13:03 | NUR ---
DELIVERED LUNCH TRAY, ADMINISTERED 2 UNIT FOR HUMALOG 163, PT TOLERATED WELL. PT IS EATING DINNER AT THIS TIME. NO SIGNS OF DISTRESS NOTED. SAFETY MEASURES IN PLACE. TELE MONITOR ATTACHED.
--- NOTE | 2019-10-15 15:40 | NUR ---
ATTENDED TO PT'S CALL LIGHT AND PT SAID HE FEELS LIKE HE HAS BM. ROLL SCALE WORKER PROVIDED A BEDPAN. NO SIGNS OF DISTRESS NOTED. SAFETY MEASURES IN PLACE. TELE MONITOR ATTACHED.
[2019-10-15 16:00] VITALS: BP 141/60
--- NOTE | 2019-10-15 17:37 | NUR ---
ATTENDED TO PT'S CALL LIGHT, PT COMPLAINED OF 6/10 PAIN ON HIS L FLANK. CHECKED BLOOD GLUCOSE AND RECEIVED 154. MEDICATED WITH PRN NORCO FOR PAIN, AND ADMINISTERED 2 UNITS OF HUMALOG, MEDS EDUCATION PROVIDED AND PT SAID OK. PT AWAKE AND RESTING ON BED AT THIS TIME. NO ACUTE DISTRESS NOTED. TELE MONITOR ATTACHED. SAFETY MEASURES IN PLACE. BED IN LOW POSITION AND CALL LIGHT WITHIN REACH.
--- NOTE | 2019-10-15 18:45 | NUR ---
BAG SHOP WORKER ASSISTED PT TO USE THE BEDPAN AND PROVIDED HYGIENE CARE. NO SIGNS OF DISTRESS NOTED. TELE MONITOR ATTACHED. SAFETY MEASURES.
--- NOTE | 2019-10-15 19:22 | NUR ---
ENDORSED PT TO WEDDING PLANNER NURSE СЕРГЕЙ FOR CONTINUITY OF CARE. PT AWAKE AND RESTING ON BED. NO ACUTE OF DISTRESS NOTED. PT IS IN STABLE CONDITION. TELE MONITOR ATTACHED. SAFETY MEASURES IN PLACE. BED ALARM ACTIVATED.
--- NOTE | 2019-10-15 19:23 | NUR ---
RECEIVED BEDSIDE REPORT FROM AM SHIFT NURSE YUNIOR. PATIENT IS LYING IN BED AWAKE AND WATCHING TV. NO SOB OR DISTRESS NOTED, ON ROOM AIR. BREATHING EVEN AND UNLABORED. IV ACCESS ON RIGHT FOREARM 22 GAUGE, PATENT, INTACT AND INFUSING WELL. SKIN INTACT. STEEL CATHETER IN PLACE, DRAINING WELL. INITIAL ASSESSMENT DONE. BED IN LOW, BED LOCKED. SAFETY MEASURES IN PLACE. CALL LIGHT PLACED WITHIN PATIENT REACH. WILL CONTINUE TO MONITOR PATIENT.
[2019-10-15 20:00] VITALS: BP 145/57
[2019-10-15] MEDS: APIXABAN 2.5 MG TAB PO SCH (21:24)
--- NOTE | 2019-10-15 21:50 | NUR ---
VITAL SIGNS AND SCHEDULED MEDICATIONS ADMINISTERED. NO DISTRESS NOTED. RESPIRATIONS EVEN AND UNLABORED. WILL CONTINUE TO MONITOR PATIENT.
--- NOTE | 2019-10-15 21:55 | NUR ---
PATIENT HAD A BLOOD GLUCOSE RESULT OF 148. NO INSULIN ADMINISTRATION NEEDED AT THIS TIME.
[2019-10-15] MEDS: TAMSULOSIN 0.4 MG CAP PO SCH (22:10)
[2019-10-15] MEDS: ATORVASTATIN 20 MG TAB PO SCH (22:10)
--- NOTE | 2019-10-15 22:50 | NUR ---
NORCO ADMINISTERED FOR MODERATE BACK PAIN PER PATIENT REQUEST. WILL CONTINUE TO MONITOR PATIENT.
[2019-10-16] VITALS: BP 140/59
--- NOTE | 2019-10-16 00:01 | NUR ---
VITALS TAKEN AT THIS TIME. VISIBLE CHEST RISE AND FALL NOTED. NO DISTRESS NOTED.
[2019-10-16] MEDS: CALCIUM CARBONATE 500 MG TAB.CHEW PO PRN ×3 (00:13→09:22)
--- NOTE | 2019-10-16 00:14 | NUR ---
TUMS ADMINISTERED PER PATIENT REQUEST FOR STOMACH PAIN AND GAS. WILL CONTINUE TO MONITOR PATIENT.
[2019-10-16 04:00] VITALS: BP 157/63
[2019-10-16] MEDS: HYDROcodone/APAP 5/325 MG 1 TAB TAB PO PRN ×2 (04:15→23:31)
--- NOTE | 2019-10-16 04:17 | NUR ---
ADMINISTERED NORCO 1 TAB AT THIS TIME FOR MODERATE BACK PAIN PER PATIENT REQUEST.
--- NOTE | 2019-10-16 04:38 | NUR ---
TUMS ADMINISTERED. PATIENT WAS COMPLAINING HE HAD REALLY BAD GAS. Addendum: 10/16/19 at 0609 by Heather Leija RN MD GALICIA. SAID IT WAS OKAY.
[2019-10-16 06:26] LABS: BASOPHILS % (AUTO) 0.3 % (0.0-2.0); EOSINOPHILS # (AUTO) 0.3 K/uL (0-0.4); EOSINOPHILS % (AUTO) 1.8 % (0.0-4.0); HEMATOCRIT 27.5 % (36-52); HEMOGLOBIN 9.1 g/dL (12.0-18.0); LYMPHOCYTES # (AUTO) 0.7 K/uL (2.0-11.5); LYMPHOCYTES % (AUTO) 4.8 % (20.5-51.1); MEAN CORPUSCULAR HEMOGLOBIN 31 pg (27-31); MEAN CORPUSCULAR HGB CONC 33 g/dL (33-37); MEAN CORPUSCULAR VOLUME 92.6 fL (80-94); MONOCYTES # (AUTO) 1.1 K/uL (0.8-1.0); MONOCYTES % (AUTO) 7.3 % (1.7-9.3); NEUTROPHILS # (AUTO) 12.9 K/uL (1.8-7.7); NEUTROPHILS % (AUTO) 85.8 % (42.2-75.2); PLATELET COUNT (AUTO) 234 K/uL (140-450); RED BLOOD CELL COUNT(AUTO) 2.97 MIL/uL (4.20-6.10); RED CELL DISTRIBUTION WIDTH 16.1 % (11.6-13.7); WHITE BLOOD COUNT (AUTO) 15.1 K/uL (4.8-10.8)
[2019-10-16] MEDS: NACL 0.9% 1,000 ML IV SCH (06:32)
[2019-10-16] MEDS: BLOOD GLUCOSE MONITORING 1 DEV DEV FS SCH ×4 (06:32→21:33)
--- NOTE | 2019-10-16 06:32 | NUR ---
PATIENT HAD A BLOOD GLUCOSE OF 114. NO INSULIN NEEDED.
--- NOTE | 2019-10-16 06:55 | NUR ---
PATIENT IN STABLE CONDITION. WILL ENDORSE TO AM SHIFT NURSE FOR CONTINUITY OF CARE.
--- NOTE | 2019-10-16 07:10 | NUR ---
RECEIVED BEDSIDE REPORT FROM NIGHT NURSE FOR CONTINUITY OF CARE. PT IS AAOX4. RESPIRATIONS EVEN AND UNLABORED,02 2L VIA NC. R HAND 22G PATENT AND INTACT. PT IS R/O COVID. ISOLATION SIGN AT DOOR. SKIN IS INTACT. STEEL CATH DRAINING YELLOW URINE. SAFETY MEASURES IN PLACE; BED IN LOW POSITION, CALL LIGHT WITHIN REACH. BED ALARM ON. TELE MONITOR ATTACHED. PT IS IN STABLE CONDITION.
[2019-10-16 07:16] LABS: ALBUMIN 1.6 g/dL (3.4-5.0); ANION GAP 11.5 (8-16); ASPARTATE AMINOTRANSFERASE 39 U/L (15-37); CARBON DIOXIDE 25.1 mmol/L (21-32); CHLORIDE 101 mmol/L (98-107); CREATININE 1.1 mg/dL (0.6-1.3); GLUCOSE 122 mg/dL (74-106); LACTATE DEHYDROGENASE 206 U/L (85-227); POTASSIUM 4.6 mmol/L (3.5-5.1); SODIUM SERUM 133 mmol/L (136-145); TOTAL BILIRUBIN 0.3 mg/dL (0.0-1.0); UREA NITROGEN, BLOOD 22 mg/dL (7-18)
[2019-10-16 08:00] VITALS: BP 167/60
[2019-10-16] MEDS ORDERED: AZITHROMYCIN 250 MG TAB PO SCH (09:00)
[2019-10-16] MEDS: LOSARTAN 50 MG TAB PO SCH (09:17)
[2019-10-16] MEDS: APIXABAN 2.5 MG TAB PO SCH (09:19)
[2019-10-16] MEDS: MULTIVITAMIN 1 TAB PO SCH (09:21)
[2019-10-16] MEDS: METOPROLOL 50 MG TAB PO SCH ×2 (09:21→20:54)
[2019-10-16] MEDS: LACTOBACILLUS RHAMNOSUS GG 1 EACH CAP PO SCH (09:23)
[2019-10-16] MEDS: NICOTINE TRANSD SYS 7 MG/24 HR PATCH TD SCH (09:25)
--- NOTE | 2019-10-16 09:30 | NUR ---
PT'S BP WAS TAKEN. BP:167/60. INFORMED DR JETT OF DIASTOLIC BP OF 60. PER DR JETT, BOTH BP MEDS SHOULD BE GIVEN.
--- NOTE | 2019-10-16 09:43 | NUR ---
SCHEDULED MEDS GIVEN. MEDICATION EDUCATION PROVIDED. PT TOLERATED PO MEDS WILL. PO TUMS WAS ADMINISTERED, PER PT REQUEST, AND COMPLAINTS OF STOMACH PAIN. IVPB ABX HUNG, AND RUNNING PER ORDERS. SAFETY MEASURES IN PLACE. NO ACUTE DISTRESS NOTED. WILL CONTINUE TO MONITOR.
[2019-10-16 12:00] VITALS: BP 134/53
--- NOTE | 2019-10-16 12:15 | NUR ---
RECEIVED A CALL FROM THE LAB, THE PT'S COVID RESULTS ARE NEGATIVE.
--- NOTE | 2019-10-16 12:34 | NUR ---
PT COMPLAINS OF PAIN. STATES HE HAS PAIN, "ALL OVER." PRN NORCO WAS GIVEN. MEDICATION EDUCATION PROVIDED. WILL REASSESS PAIN. SAFETY MEASURES IN PLACE. TELE MONITOR ATTACHED.
--- NOTE | 2019-10-16 12:41 | NUR ---
PT'S BLOOD SUGAR WAS CHECKED; BGL: 129. NO COVERAGE NEEDED.
--- NOTE | 2019-10-16 12:45 | NUR ---
RED URINE OBSERVED IN THE CATHETER TUBING AND BAG OF THE STEEL CATHETER. CATHETER BAG DRAINED. CATHETER IRRIGATED WITH 60 ML OF STERILE WATER. MINIMAL CLOTS OBSERVED. 250 ML OF URINE REMOVED.
--- NOTE | 2019-10-16 14:20 | NUR ---
PT IS WITH PT AT BEDSIDE. PT'S SISTER, TAM, IS ON THE PHONE ASKING FOR INFORMATION ABOUT THE PT'S CONDITION. DR JETT IS UPDATING TAM ON THE PT'S STATUS.
--- NOTE | 2019-10-16 14:35 | NUR ---
SPOKE WITH SALVADOR FROM RADIOLOGY. SALVADOR STATED THAT A 20 G IV IS NEEDED FOR AN ORDERED CT CHEST ANGIO WITH CONTRAST. PT SHOULD BE NPO BEFORE PROCEDURE.
--- NOTE | 2019-10-16 15:00 | NUR ---
REPEAT COVID TEST PERFORMED AND SENT TO LAB. CATHETER IRRIGATED WITH 100 CCS OF STERILE WATER. 75 ML OF BRIGHT BLOOD RED MEASURED. PT IS IN STABLE CONDITION. WILL CONTINUE TO MONITOR.
--- NOTE | 2019-10-16 15:14 | NUR ---
CONSENT FOR THE PROCEDURE HAS BEEN OBTAINED. MARY IS AT BEDSIDE ATTEMPTING IV INSERTION, 20 SHANNAN.
--- NOTE | 2019-10-16 15:17 | NUR ---
DR JETT IS AT BEDSIDE. PER DR JETT, CT ANGIO WITH CONTRAST WILL BE CANCELLED. NO ADDITIONAL IV ACCESS IS NEEDED AT THIS TIME.
--- NOTE | 2019-10-16 15:45 | NUR ---
CHECKED PT'S BGL; BGL: 237. 4 UNITS COVERAGE GIVEN CHANGED THE BATTERIES IN THE MONITOR. PT IN STABLE CONDITION.
[2019-10-16 16:00] VITALS: BP 143/58
--- NOTE | 2019-10-16 16:18 | NUR ---
WAS INFORMED BY HEALTH CARE COORDINATOR, FLOR, OF HR OF 41, AND DROPPED BEATS ON THE MONITOR. DR JETT IS AWARE; ORDERED EKG SAT. A REPEAT COVID TEST TO BE ORDERED, REINSTATE DROPLET PRECAUTIONS UNTIL TEST RESULTS FROM THE SECOND TEST ARE AVAILABLE.
[2019-10-16 17:23] LABS: BASOPHILS % (AUTO) 0.2 % (0.0-2.0); EOSINOPHILS # (AUTO) 0.2 K/uL (0-0.4); HEMOGLOBIN 8.5 g/dL (12.0-18.0); LYMPHOCYTES # (AUTO) 0.4 K/uL (2.0-11.5); LYMPHOCYTES % (AUTO) 2.6 % (20.5-51.1); MEAN CORPUSCULAR HEMOGLOBIN 30 pg (27-31); MEAN CORPUSCULAR HGB CONC 33 g/dL (33-37); MEAN CORPUSCULAR VOLUME 92.3 fL (80-94); MONOCYTES # (AUTO) 1.1 K/uL (0.8-1.0); MONOCYTES % (AUTO) 6.8 % (1.7-9.3); NEUTROPHILS # (AUTO) 14.8 K/uL (1.8-7.7); NEUTROPHILS % (AUTO) 89.4 % (42.2-75.2); PLATELET COUNT (AUTO) 225 K/uL (140-450); RED BLOOD CELL COUNT(AUTO) 2.82 MIL/uL (4.20-6.10); RED CELL DISTRIBUTION WIDTH 16.4 % (11.6-13.7); WHITE BLOOD COUNT (AUTO) 16.6 K/uL (4.8-10.8)
[2019-10-16 17:30] LABS: ANION GAP 11.7 (8-16); CARBON DIOXIDE 24.9 mmol/L (21-32); CHLORIDE 100 mmol/L (98-107); CREATININE 1.1 mg/dL (0.6-1.3); GLUCOSE 157 mg/dL (74-106); POTASSIUM 4.6 mmol/L (3.5-5.1); SODIUM SERUM 132 mmol/L (136-145); UREA NITROGEN, BLOOD 22 mg/dL (7-18)
[2019-10-16] MEDS: INSULIN LISPRO SLIDING SCALE 100 UNITS/ML VIAL SUBQ PRN (19:05)
--- NOTE | 2019-10-16 19:30 | NUR ---
RECEIVED BEDSIDE REPORT FROM DAY SHIFT NURSEMINA FOR CONTINUITY OF CARE. RESPIRATIONS EVEN AND UNLABORED, O2 2L VIA NC. IV SITE ON RFA 22G PATENT AND INTACT. PT IS R/O COVID. ISOLATION SIGN AT DOOR. SKIN IS INTACT. PT HAS STEEL CATH. SAFETY MEASURES IN PLACE; BED IN LOW POSITION, CALL LIGHT WITHIN REACH. BED ALARM ON. TELE MONITOR ATTACHED.
--- NOTE | 2019-10-16 19:35 | NUR ---
ENDORSED TO SENIOR LIVING ADVISOR NURSE FOR CONTINUITY OF CARE. PT IS IN STABLE CONDITION.
[2019-10-16 20:00] VITALS: BP 118/48
[2019-10-16] MEDS: ATORVASTATIN 20 MG TAB PO SCH (20:54)
[2019-10-16] MEDS: TAMSULOSIN 0.4 MG CAP PO SCH (20:54)
--- NOTE | 2019-10-16 20:54 | NUR ---
GIVEN FLOMAX, LIPITOR, METOPROLOL MD ORDERED. PT TOLERATED WELL. BS CHECKED, 117, NO INSULIN COVERAGE NEEDED.
[2019-10-16] MEDS: ZOLPIDEM 5 MG TAB PO PRN (23:31)
--- NOTE | 2019-10-16 23:31 | NUR ---
PT C/O 12/03 PAIN AND INSOMNIA. GIVEN DELMI AND KEVYN MD ORDERED. PT TOLERATED WELL.
[2019-10-17] VITALS: BP 143/55
--- NOTE | 2019-10-17 | NUR ---
VS CHECKED, WITHIN PT'S BASELINE. WILL CONTINUE TO MONITOR.
[2019-10-17] MEDS: NACL 0.9% 1,000 ML IV SCH ×2 (02:12→16:29)
--- NOTE | 2019-10-17 02:18 | NUR ---
PT SLEEPING IN BED COMFORTABLY. NO ACUTE DISTRESS NOTED.
[2019-10-17 04:00] VITALS: BP 155/62
--- NOTE | 2019-10-17 04:05 | NUR ---
IRRIGATED STEEL CATHETER, VS CHECKED, WITHIN PT'S BASELINE. WILL CONTINUE TO MONITOR.
[2019-10-17 06:16] LABS: BASOPHILS % (AUTO) 0.3 % (0.0-2.0); EOSINOPHILS # (AUTO) 0.2 K/uL (0-0.4); EOSINOPHILS % (AUTO) 1.5 % (0.0-4.0); HEMATOCRIT 26.1 % (36-52); HEMOGLOBIN 8.6 g/dL (12.0-18.0); LYMPHOCYTES # (AUTO) 0.5 K/uL (2.0-11.5); LYMPHOCYTES % (AUTO) 3.8 % (20.5-51.1); MEAN CORPUSCULAR HEMOGLOBIN 30 pg (27-31); MEAN CORPUSCULAR HGB CONC 33 g/dL (33-37); MEAN CORPUSCULAR VOLUME 91.7 fL (80-94); MONOCYTES # (AUTO) 0.9 K/uL (0.8-1.0); MONOCYTES % (AUTO) 6.9 % (1.7-9.3); NEUTROPHILS # (AUTO) 11.4 K/uL (1.8-7.7); NEUTROPHILS % (AUTO) 87.5 % (42.2-75.2); PLATELET COUNT (AUTO) 244 K/uL (140-450); RED BLOOD CELL COUNT(AUTO) 2.85 MIL/uL (4.20-6.10); RED CELL DISTRIBUTION WIDTH 15.9 % (11.6-13.7); WHITE BLOOD COUNT (AUTO) 13.1 K/uL (4.8-10.8)
[2019-10-17] MEDS: BLOOD GLUCOSE MONITORING 1 DEV DEV FS SCH ×4 (06:22→20:40)
--- NOTE | 2019-10-17 06:23 | NUR ---
BS CHECKED, 117, NO INSULIN COVERAGE NEEDED.
--- NOTE | 2019-10-17 06:51 | NUR ---
PT IN STABLE CONDITION. WILL ENDORSE PT TO DAY SHIFT NURSE FOR CONTINUOUS CARE.
[2019-10-17 07:16] LABS: ALBUMIN 1.4 g/dL (3.4-5.0); ANION GAP 11.1 (8-16); ASPARTATE AMINOTRANSFERASE 36 U/L (15-37); CARBON DIOXIDE 26.4 mmol/L (21-32); CHLORIDE 99 mmol/L (98-107); GLUCOSE 127 mg/dL (74-106); POTASSIUM 4.5 mmol/L (3.5-5.1); SODIUM SERUM 132 mmol/L (136-145); TOTAL BILIRUBIN 0.2 mg/dL (0.0-1.0); UREA NITROGEN, BLOOD 24 mg/dL (7-18)
--- NOTE | 2019-10-17 07:20 | NUR ---
Received report from pm nurse Boogie. Pt asleep in bed, respirations even & nonlabored in room air as e/b regular chest rise and fall. FLACC 0. Call light within reach. Remains on enhanced droplet precautions.
[2019-10-17 08:00] VITALS: BP 164/68
[2019-10-17] MEDS: NICOTINE TRANSD SYS 7 MG/24 HR PATCH TD SCH (08:12)
[2019-10-17] MEDS: HYDROcodone/APAP 5/325 MG 1 TAB TAB PO PRN ×4 (08:13→18:01)
[2019-10-17] MEDS: LACTOBACILLUS RHAMNOSUS GG 1 EACH CAP PO SCH (08:13)
[2019-10-17] MEDS: MULTIVITAMIN 1 TAB PO SCH (08:13)
[2019-10-17] MEDS: LOSARTAN 50 MG TAB PO SCH (08:13)
[2019-10-17] MEDS: METOPROLOL 50 MG TAB PO SCH ×2 (08:13→22:08)
--- NOTE | 2019-10-17 08:30 | NUR ---
Irrigated Gaitan cath with 120ml NS. Gaitan draining well with hematuria. Patient denies and discomfort/pain at this time. Call light within reach. Educated patient on proper use of bedside telephone. Pt able to return demonstrate teachings.
[2019-10-17 12:00] VITALS: BP 129/55
--- NOTE | 2019-10-17 13:00 | NUR ---
Irrigated white cath with 120ml NS. Hematuria still present.
[2019-10-17 16:00] VITALS: BP 134/68
--- NOTE | 2019-10-17 16:12 | NUR ---
10/17/19 RD INITIAL ASSESSMENT COMPLETED PLEASE REFER TO NUTRITION ASSESSMENT UNDER CARE ACTIVITY FOR ESTIMATED NUTRITIONAL NEEDS. 1. CONTINUE REGULAR DIET WITH ENSURE BID TOLERATED 2. RD WILL PROVIDE NUTRITION EDUCATION ON FOLLOW UP VISIT 3. RD TO FOLLOW-UP 3-5 DAYS, MODERATE RISK YULISA MORGAN RD
--- NOTE | 2019-10-17 18:00 | NUR ---
Gaitan cath irrigated with 120ml NS. Urine in drainage bag remains dark red, no clots.
--- NOTE | 2019-10-17 19:28 | NUR ---
RECEIVED REPORT FROM DAY SHIFT NURSE. PLAN OF CARE DISCUSSED. PATIENT AWAKE AND ABLE TO MAKE NEEDS KNOWN. IVF INTACT AND INFUSING WELL. FC PATENT AND DRAINING TO BLOODY URINE. DENIES ANY PAIN OR DISCOMFORT AT THIS TIME. SAFETY MEASURES IN PLACE. WILL CONTINUE TO MONITOR.
[2019-10-17 20:00] VITALS: BP 132/56
--- NOTE | 2019-10-17 21:50 | NUR ---
VITAL SIGNS STABLE. SCHEDULED MEDICATIONS GIVEN ORDERED. BLOOD SUGAR TAKEN. COVERAGE GIVEN ORDERED. BLOOD PRESENT IN FC. BLADDER IRRIGATION DONE. PATIENT TOLERATED PROCEDURE. CURRENTLY DENIES ANY PAIN OR DISCOMFORT. SAFETY MEASURES IN PLACE. CALL LIGHT WITHIN REACH. WILL CONTINUE TO MONITOR.
[2019-10-17] MEDS: TAMSULOSIN 0.4 MG CAP PO SCH (22:07)
[2019-10-17] MEDS: ATORVASTATIN 20 MG TAB PO SCH (22:08)
[2019-10-17] MEDS: INSULIN LISPRO SLIDING SCALE 100 UNITS/ML VIAL SUBQ PRN (22:11)
[2019-10-18] VITALS: BP 134/54
[2019-10-18] MEDS: HYDROcodone/APAP 5/325 MG 1 TAB TAB PO PRN ×3 (00:08→15:42)
--- NOTE | 2019-10-18 00:12 | NUR ---
PATIENT COMPLAINED OF PAIN /. PRN PAIN MED GIVEN ORDERED. VITAL SIGNS ARE STABLE AT THIS TIME. RESPIRATIONS EVEN AND UNLABORED. PATIENT GIVEN CRACKERS AND FOOD REQUESTED. SAFETY MEASURES IN PLACE. CALL LIGHT WITHIN REACH. WILL CONTINUE TO MONITOR.
--- NOTE | 2019-10-18 01:55 | NUR ---
PATIENT IN BED WATCHING TV. HOB ELEVATED. DENIES ANY PAIN OR DISCOMFORT. RESPIRATIONS EVEN AND UNLABORED. PATIENT KEPT COMFORTABLE. NO REQUESTS MADE AT THIS TIME. SAFETY MEASURES IN PLACE. WILL CONTINUE TO MONITOR.
[2019-10-18] MEDS: CALCIUM CARBONATE 500 MG TAB.CHEW PO PRN ×2 (02:03→22:56)
--- NOTE | 2019-10-18 02:03 | NUR ---
PATIENT VERBALIZED FEELING GASSY. REQUESTING FOR TUMS. PRN TUMS GIVEN ORDERED. WILL CONTINUE TO MONITOR.
[2019-10-18] MEDS: NACL 0.9% 1,000 ML IV SCH ×2 (02:12→16:20)
--- NOTE | 2019-10-18 04:15 | NUR ---
PATIENT IN BED SLEEPING. NO S/SX OF DISTRESS NOTED. SAFETY MEASURES IN PLACE. WILL CONTINUE TO MONITOR.
[2019-10-18 05:48] VITALS: BP 130/51
[2019-10-18] MEDS: BLOOD GLUCOSE MONITORING 1 DEV DEV FS SCH ×4 (05:50→20:53)
--- NOTE | 2019-10-18 05:54 | NUR ---
PATIENT COMPLAINED OF PAIN /. PRN MED GIVEN ORDERED. BLOOD FORMATION ON CATHETER NOTED. IRRIGATED ORDERED. VITAL SIGNS ARE STABLE. SAFETY MEASURES IN PLACE. WILL CONTINUE TO MONITOR.
[2019-10-18] MEDS: INSULIN LISPRO SLIDING SCALE 100 UNITS/ML VIAL SUBQ PRN ×2 (05:56→18:40)
--- NOTE | 2019-10-18 07:10 | NUR ---
ENDORSED TO DAYSHIFT NURSE FOR CONTINUITY OF CARE. PATIENT IN STABLE CONDITION.
--- NOTE | 2019-10-18 07:15 | NUR ---
RECEIVED BEDSIDE SHIFT REPORT FROM PM RN PT AWAKE IN BED ALL SAFETY MEASURES ARE IN PLACE WILL CONTINUE TO MONITOR
[2019-10-18] MEDS: METOPROLOL 50 MG TAB PO SCH ×2 (09:00→20:42)
[2019-10-18] MEDS: NICOTINE TRANSD SYS 7 MG/24 HR PATCH TD SCH (09:00)
[2019-10-18] MEDS: LACTOBACILLUS RHAMNOSUS GG 1 EACH CAP PO SCH (09:00)
[2019-10-18] MEDS: MULTIVITAMIN 1 TAB PO SCH (09:00)
[2019-10-18] MEDS: LOSARTAN 50 MG TAB PO SCH (09:00)
--- NOTE | 2019-10-18 09:25 | NUR ---
FREQUENT ROUNDING ON PT PT APPEARS STABLE AND IN NO APPARENT DISTRESS; ALL SAFETY MEASURES ARE IN PLACE
[2019-10-18 10:27] LABS: ANION GAP 10.8 (8-16); CARBON DIOXIDE 27.4 mmol/L (21-32); CHLORIDE 99 mmol/L (98-107); GLUCOSE 89 mg/dL (74-106); POTASSIUM 4.2 mmol/L (3.5-5.1); SODIUM SERUM 133 mmol/L (136-145); UREA NITROGEN, BLOOD 22 mg/dL (7-18)
[2019-10-18 10:39] LABS: BASOPHILS # (AUTO) 0.1 K/uL (0.00-0.22); BASOPHILS % (AUTO) 0.6 % (0.0-2.0); EOSINOPHILS # (AUTO) 0.1 K/uL (0-0.4); EOSINOPHILS % (AUTO) 0.9 % (0.0-4.0); HEMATOCRIT 25.1 % (36-52); HEMOGLOBIN 8.3 g/dL (12.0-18.0); LYMPHOCYTES # (AUTO) 0.6 K/uL (2.0-11.5); LYMPHOCYTES % (AUTO) 4.7 % (20.5-51.1); MEAN CORPUSCULAR HEMOGLOBIN 30 pg (27-31); MEAN CORPUSCULAR HGB CONC 33 g/dL (33-37); MEAN CORPUSCULAR VOLUME 90.8 fL (80-94); MONOCYTES # (AUTO) 1.1 K/uL (0.8-1.0); MONOCYTES % (AUTO) 8.2 % (1.7-9.3); NEUTROPHILS # (AUTO) 11.4 K/uL (1.8-7.7); NEUTROPHILS % (AUTO) 85.6 % (42.2-75.2); PLATELET COUNT (AUTO) 277 K/uL (140-450); RED BLOOD CELL COUNT(AUTO) 2.77 MIL/uL (4.20-6.10); RED CELL DISTRIBUTION WIDTH 16.1 % (11.6-13.7); WHITE BLOOD COUNT (AUTO) 13.3 K/uL (4.8-10.8)
--- NOTE | 2019-10-18 11:51 | NUR ---
FREQUENT ROUNDING ON PT PT APPEARS STABLE AND IN NO APPARENT DISTRESS. ALL SAFETY MEASURES ARE IN PLACE
[2019-10-18 12:05] VITALS: BP 154/58
--- NOTE | 2019-10-18 13:56 | NUR ---
FREQUENT ROUNDING ON PT PT APPEARS STABLE AND IN NO APPARENT DISTRESS. ALL SAFETY MEASURES ARE IN PLACE WILL CONTINUE TO MONITOR
[2019-10-18 16:05] VITALS: BP 136/64
--- NOTE | 2019-10-18 19:30 | NUR ---
RECEIVED FROM AM RN PT. IN A SITTING UP POSITION WATCHING TV. WITH STEEL CATHETER IN PLACE WITH PINKISH URINE. WILL CONTINUE WITH CURRENT CARE PLANS. CALL LIGHT WITH IN REACH. PT. REMINDED TO USE CALL LIGHT FOR ANY HELP HE MAY NEED. AFEBRILE.
[2019-10-18] MEDS: ATORVASTATIN 20 MG TAB PO SCH (20:41)
[2019-10-18] MEDS: TAMSULOSIN 0.4 MG CAP PO SCH (20:41)
[2019-10-18 20:42] VITALS: BP 126/51
--- NOTE | 2019-10-18 21:56 | NUR ---
DATA PROCESSING AUDITOR CALLED TO TELL ME THAT THERE IS AN ORDER FOR CXR WITH PT. BUT THEY NEED TO WAIT FOR COVID-19 RESULT TO COME IN SO THEY CAN DO IT.
--- NOTE | 2019-10-18 22:48 | NUR ---
PT. AT THIS TIME SLEEPING. CALL LIGHT WITH IN REACH. USES CALL LIGHT FOR HELP .
--- NOTE | 2019-10-18 22:56 | NUR ---
PT. WOKE UP AND REQUESTED FOR TUMS. STATED HIS STOMACH GOT GAS.
[2019-10-18 23:50] VITALS: BP 129/71
--- NOTE | 2019-10-19 01:00 | NUR ---
PT. WOKE UP RT NEXT DOOR PT. KEEPS GOING OUT OF ROOM AND NOISY. REQUESTED TO HAVE ALL LIGHTS IN ROOM OFF. KEPT COMFORTABLE. CALL LIGHT WITH IN REACH.
--- NOTE | 2019-10-19 03:00 | NUR ---
SLEEPING BUT WAKES UP EASILY IF PT. NEXT DOOR WALKS OUT OF HIS ROOM. DENIES ANY PAIN AT THIS TIME. ENCOURAGED TO GO BACK TO SLEEP. A/O X 4. ABLE TO VERBALIZE NEEDS WELL IN [place]. TELEMETRY MONITORING.
[2019-10-19 04:00] VITALS: BP 132/75
[2019-10-19] MEDS: BLOOD GLUCOSE MONITORING 1 DEV DEV FS SCH ×4 (05:38→21:00)
[2019-10-19] MEDS: INSULIN LISPRO SLIDING SCALE 100 UNITS/ML VIAL SUBQ PRN ×3 (05:39→17:20)
--- NOTE | 2019-10-19 05:42 | NUR ---
BLOOD SUGAR CHECK PER FINGERSTICK 166 . WILL COVER WITH 2 UNITS HUMALOG INSULIN. PT. NO COMPLAINTS. ABLE TO USE CALL LIGHT FOR HELP.
[2019-10-19] MEDS: CALCIUM CARBONATE 500 MG TAB.CHEW PO PRN ×2 (06:34→20:48)
--- NOTE | 2019-10-19 06:34 | NUR ---
PT. AWAKE AT THIS TIME AND REQUESTED FOR TUMS. "MY STOMACH IS WITH GAS" ABLE TO VERBALIZE NEEDS WELL. AFEBRILE. WILL ENDORSE TO AM RN FOR CONTINUITY OF CARE.
--- NOTE | 2019-10-19 07:25 | NUR ---
RECEIVED PT FROM QUALITY SYSTEM MANAGER NURSE, PT IS AWAKE AND ON INTERMITTENT STEEL CATHETER IRRIGATION, IV LINE ON THE RT FA G. 22 WITH NS AT 20ML/HR, SIDE RAILS RE UP AND CALL LIGHT WITHIN REACH, NO SIGN OF DISTRESS NOTED AND WILL MONITOR PT.
[2019-10-19] MEDS ORDERED: MORPHINE SULFATE 2 MG/ML SYR IVP PRN (07:40)
[2019-10-19 08:00] VITALS: BP 139/56
--- NOTE | 2019-10-19 08:00 | NUR ---
STEEL CATHETER IRRIGATION WAS DONE NOW.
[2019-10-19] MEDS: LOSARTAN 50 MG TAB PO SCH (11:14)
--- NOTE | 2019-10-19 11:14 | NUR ---
PT WAS GIVEN THE SCHEDULED MEDICATION VIA IVPB NOW. WILL
[2019-10-19] MEDS: LACTOBACILLUS RHAMNOSUS GG 1 EACH CAP PO SCH (11:15)
[2019-10-19] MEDS: MULTIVITAMIN 1 TAB PO SCH (11:16)
[2019-10-19] MEDS: METOPROLOL 50 MG TAB PO SCH ×2 (11:16→20:47)
[2019-10-19] MEDS: NICOTINE TRANSD SYS 7 MG/24 HR PATCH TD SCH (11:17)
[2019-10-19 12:00] VITALS: BP 134/54
[2019-10-19] MEDS ORDERED: CRUSHER, PILL MC ONE (12:40)
[2019-10-19] MEDS: HYDROcodone/APAP 5/325 MG 1 TAB TAB PO PRN ×2 (14:51→23:51)
--- NOTE | 2019-10-19 14:51 | NUR ---
STEEL IRRIGATION WAS DONE NOW AND PAIN MEDICATION WAS GIVEN WELL.
[2019-10-19 16:00] VITALS: BP 130/59
[2019-10-19] MEDS: NACL 0.9% 1,000 ML IV SCH (16:20)
--- NOTE | 2019-10-19 17:20 | NUR ---
PT WAS GIVEN 2 UNITS INSULIN ON THE RT UA FOR THE BLOOD GLUCOSE OF 169, NO DISTRESS NOTED, WILL MONITOR PT.
--- NOTE | 2019-10-19 17:25 | NUR ---
PT SIGNED THE AUTHORIZATION FORM OF RELEASE OF INFORMATION TO BE FAXED TO [facility] IN [place]
--- NOTE | 2019-10-19 19:15 | NUR ---
ENDORSED TO TOBACCO SIEVE OPERATOR NURSE TO FACILITATE FAXING OF REQUEST OF MEDICAL INFORMATION TO [facility].
--- NOTE | 2019-10-19 19:20 | NUR ---
[facility].
--- NOTE | 2019-10-19 19:21 | NUR ---
RECEIVED BEDSIDE REPORT FROM AM SHIFT NURSE. PATIENT IS LYING IN BED AWAKE AND ALERT, NO SOB OR DISTRESS NOTED ON ROOM AIR. IV ACCESS ON RIGHT FOREARM 22 GAUGE, PATENT, INTACT AND INFUSING WELL. STEEL CATHETER IN PLACE, DRAINING DARK RED URINE. SKIN IS INTACT. INITIAL ASSESSMENT DONE. BED IN LOW, BED LOCKED. SAFETY MEASURES IN PLACE. CALL LIGHT PLACED WITHIN PATIENT REACH. WILL CONTINUE TO MONITOR PATIENT.
--- NOTE | 2019-10-19 20:19 | NUR ---
RECEIVED REPORT FROM AM SHIFT. PATIENT SEEN AND ASSESSED. FOUND PATIENT ON 2L WITH SPO2 OF 97%. PATIENT IS IN NO APPARENT RESPIRATORY DISTRESS AT THIS TIME. PRN TX NOT INDICATED AT THIS MOMENT. WILL CONTINUE TO MONITOR.
[2019-10-19 20:20] VITALS: BP 143/56
--- NOTE | 2019-10-19 20:20 | NUR ---
VITALS TAKEN AT THIS TIME. NO DISTRESS NOTED. VISIBLE CHEST RISE AND FALL NOTED. WILL CONTINUE TO MONITOR PATIENT.
[2019-10-19] MEDS: TAMSULOSIN 0.4 MG CAP PO SCH (20:47)
[2019-10-19] MEDS: ATORVASTATIN 20 MG TAB PO SCH (20:47)
--- NOTE | 2019-10-19 20:48 | NUR ---
PRN TUMS GIVEN PER PATIENT REQUEST FOR GAS. WILL CONTINUE TO MONITOR PATIENT.
--- NOTE | 2019-10-19 22:09 | NUR ---
PATIENT HAD A BLOOD GLUCOSE OF 139 WITH NO UNITS OF INSULIN GIVEN AT THIS TIME.
[2019-10-19] MEDS: ZOLPIDEM 5 MG TAB PO PRN (23:51)
--- NOTE | 2019-10-19 23:52 | NUR ---
JASBIR BAGLEY AND DELMI GIVEN PER PATIENT REQUEST. PATIENT STATES HE HAS MODERATE BACK PAIN AND HE CANT SLEEP. WILL CONTINUE TO MONITOR PATIENT.
[2019-10-20 00:20] VITALS: BP 135/56
--- NOTE | 2019-10-20 00:20 | NUR ---
VITALS TAKEN. NO DISTRESS NOTED. WILL CONTINUE TO MONITOR PATIENT.
--- NOTE | 2019-10-20 02:40 | NUR ---
ROUNDS DONE. PATIENT RESTING WITH EYES CLOSED. NO DISTRESS NOTED. WILL CONTINUE TO MONITOR PATIENT.
[2019-10-20 04:05] VITALS: BP 143/61
--- NOTE | 2019-10-20 04:25 | NUR ---
VITALS TAKEN. NO DISTRESS NOTED. WILL CONTINUE TO MONITOR PATIENT.
[2019-10-20] MEDS: BLOOD GLUCOSE MONITORING 1 DEV DEV FS SCH ×4 (06:39→21:01)
[2019-10-20] MEDS: INSULIN LISPRO SLIDING SCALE 100 UNITS/ML VIAL SUBQ PRN ×2 (06:41→17:33)
--- NOTE | 2019-10-20 06:41 | NUR ---
PATIENT HAD A BLOOD GLUCOSE OF 152 WITH 2 UNITS OF REGULAR HUMALOG INSULIN ADMINISTERED
--- NOTE | 2019-10-20 07:30 | NUR ---
ENDORSED TO AM SHIFT NURSE FOR CONTINUITY OF CARE. PATIENT RESTING WITH EYES CLOSED. VISIBLE CHEST RISE AND FALL NOTED.
--- NOTE | 2019-10-20 07:35 | NUR ---
RECEIVED PT FROM [facility] SHIFT NURSEСЕРГЕЙ, PT IS AWAKE AND LYING ON THE BED WITH SIDE RAILS UP AND CALL LIGHT WITHIN REACH, IV LINE ON RT FA G. 22 WITH NS INFUSING AT 20ML/HR, ON ROOM AIR AND NO SIGN OF DISTRESS NOTED, WILL MONITOR PT.
[2019-10-20 08:00] VITALS: BP 127/54
[2019-10-20 08:48] LABS: ANION GAP 10.6 (8-16); CARBON DIOXIDE 26.9 mmol/L (21-32); CHLORIDE 99 mmol/L (98-107); CREATININE 0.9 mg/dL (0.6-1.3); GLUCOSE 153 mg/dL (74-106); POTASSIUM 4.5 mmol/L (3.5-5.1); SODIUM SERUM 132 mmol/L (136-145); UREA NITROGEN, BLOOD 19 mg/dL (7-18)
[2019-10-20 08:51] LABS: MAGNESIUM 1.5 mg/dL (1.8-2.4); PHOSPHORUS 2.9 mg/dL (2.5-4.9)
[2019-10-20 09:01] LABS: BASOPHILS % (AUTO) 0.7 % (0.0-2.0); HEMATOCRIT 24.4 % (36-52); HEMOGLOBIN 7.9 g/dL (12.0-18.0); LYMPHOCYTES # (AUTO) 0.7 K/uL (2.0-11.5); MEAN CORPUSCULAR HEMOGLOBIN 29 pg (27-31); MEAN CORPUSCULAR HGB CONC 32 g/dL (33-37); MEAN CORPUSCULAR VOLUME 90.5 fL (80-94); MONOCYTES # (AUTO) 1.3 K/uL (0.8-1.0); MONOCYTES % (AUTO) 9.1 % (1.7-9.3); NEUTROPHILS # (AUTO) 11.6 K/uL (1.8-7.7); PLATELET COUNT (AUTO) 318 K/uL (140-450); RED BLOOD CELL COUNT(AUTO) 2.69 MIL/uL (4.20-6.10); RED CELL DISTRIBUTION WIDTH 16.3 % (11.6-13.7); WHITE BLOOD COUNT (AUTO) 13.8 K/uL (4.8-10.8)
[2019-10-20 09:02] LABS: BASOPHILS # (AUTO) 0.1 K/uL (0.00-0.22); EOSINOPHILS # (AUTO) 0.1 K/uL (0-0.4)
[2019-10-20] MEDS: LOSARTAN 50 MG TAB PO SCH (10:16)
[2019-10-20] MEDS: MULTIVITAMIN 1 TAB PO SCH (10:16)
[2019-10-20] MEDS: LACTOBACILLUS RHAMNOSUS GG 1 EACH CAP PO SCH (10:16)
[2019-10-20] MEDS: NICOTINE TRANSD SYS 7 MG/24 HR PATCH TD SCH (10:17)
[2019-10-20] MEDS: METOPROLOL 50 MG TAB PO SCH ×2 (10:20→20:55)
--- NOTE | 2019-10-20 10:26 | NUR ---
PT IS AWAKE AND SCHEDULED AM MEDICATIONS WERE GIVEN TO PT NOW, BP IS137/55, PULSE IS 74 MANUALLY, O2 SATURATION IS 95% ON ROOM AIR, NO DISTRESS NOTED AND WILL MONITOR PT.
[2019-10-20 10:29] LABS: LYMPHOCYTES % (AUTO) 5.1 % (20.5-51.1); NEUTROPHILS % (AUTO) 84.1 % (42.2-75.2)
[2019-10-20 12:00] VITALS: BP 148/67
--- NOTE | 2019-10-20 12:18 | NUR ---
PT'S BLOOD GLUCOSE WAS CHECKED AND IS 123, NO INSULIN COVERAGE NEEDED. WILL MONITOR PT.
[2019-10-20] MEDS: HYDROcodone/APAP 5/325 MG 1 TAB TAB PO PRN (12:42)
--- NOTE | 2019-10-20 12:42 | NUR ---
PT C/O PAIN RATE OF 6/10 AND NORCO WAS GIVEN, WILL RE-ASSESS PAIN AND MONITOR PT.
[2019-10-20 16:00] VITALS: BP 130/57
[2019-10-20] MEDS ORDERED: MAG SULF 2000 MG/WATER PREMIX 100 ML IV SCH (16:00)
[2019-10-20] MEDS: NACL 0.9% 1,000 ML IV SCH (16:20)
[2019-10-20] MEDS ORDERED: MAGNESIUM CITRATE 300 ML BTL PO SCH (16:45)
--- NOTE | 2019-10-20 17:42 | NUR ---
PT WAS STARTED ON MAGNESIUM RIDER OF 2GM AND MAGNESIUM CITROMA. WILL MONITOR PT.
--- NOTE | 2019-10-20 19:20 | NUR ---
ENDORSED TO JAWBONE PULLER NURSE FOR CONTINUITY OF CARE. IN STABLE CONDITION
--- NOTE | 2019-10-20 19:21 | NUR ---
RECEIVED BEDSIDE REPORT FROM AM SHIFT NURSE. PATIENT IS LYING IN BED AWAKE AND ALERT, NO SOB OR DISTRESS NOTED ON ROOM AIR. IV SITE ON LH 24G, PATENT, INTACT AND INFUSING WELL. STEEL CATHETER IN PLACE, DRAINING DARK RED URINE. SKIN IS INTACT. INITIAL ASSESSMENT DONE. BED IN LOW, BED LOCKED. SAFETY MEASURES IN PLACE. CALL LIGHT PLACED WITHIN PATIENT REACH. WILL CONTINUE TO MONITOR PATIENT.
[2019-10-20 20:00] VITALS: BP 131/57
[2019-10-20] MEDS: ATORVASTATIN 20 MG TAB PO SCH (20:52)
[2019-10-20] MEDS: TAMSULOSIN 0.4 MG CAP PO SCH (20:52)
--- NOTE | 2019-10-20 21:02 | NUR ---
GIVEN FLOMAX, LIPITOR, METOPROLOL MD ORDERED. PT TOLERATED WELL. BS CHECKED, 107. NO INSULIN COVERAGE NEEDED.
[2019-10-20] MEDS: ZOLPIDEM 5 MG TAB PO PRN (21:20)
--- NOTE | 2019-10-20 21:20 | NUR ---
PT C/O INSOMNIA, GIVEN KEVYN MD ORDERED. PT TOLERATED WELL.
--- NOTE | 2019-10-20 23:55 | NUR ---
VS CHECKED, WITHIN PT'S BASELINE. WILL CONTINUE TO MONITOR.
[2019-10-21] VITALS: BP 139/48
--- NOTE | 2019-10-21 02:12 | NUR ---
PT SLEEPING IN BED COMFORTABLY. NO ACUTE DISTRESS NOTED.
--- NOTE | 2019-10-21 03:43 | NUR ---
PT C/O BACK PAIN 04/04, GIVEN MORPHINE 1MG MD ORDERED. WASTED THE OTHER 1MG, CHARGE NURSE, FAIRY WITNESS.
[2019-10-21 04:00] VITALS: BP 151/60
--- NOTE | 2019-10-21 05:02 | NUR ---
PT HAD BM, CHANGED PT WITH CLERK RATING, NENO.
[2019-10-21] MEDS: CALCIUM CARBONATE 500 MG TAB.CHEW PO PRN ×2 (05:45→09:49)
[2019-10-21] MEDS: BLOOD GLUCOSE MONITORING 1 DEV DEV FS SCH ×2 (05:45→11:30)
--- NOTE | 2019-10-21 05:46 | NUR ---
BS CHECKED, 101. NO INSULIN COVERAGE NEEDED. PT ASKING TUMS FOR GAS, GIVEN TUMS MD ORDERED. PT TOLERATED WELL.
[2019-10-21 07:17] LABS: BASOPHILS # (AUTO) 0.1 K/uL (0.00-0.22); BASOPHILS % (AUTO) 0.4 % (0.0-2.0); EOSINOPHILS # (AUTO) 0.2 K/uL (0-0.4); EOSINOPHILS % (AUTO) 1.4 % (0.0-4.0); HEMATOCRIT 26.2 % (36-52); HEMOGLOBIN 8.6 g/dL (12.0-18.0); LYMPHOCYTES # (AUTO) 0.6 K/uL (2.0-11.5); LYMPHOCYTES % (AUTO) 3.8 % (20.5-51.1); MEAN CORPUSCULAR HEMOGLOBIN 29 pg (27-31); MEAN CORPUSCULAR HGB CONC 33 g/dL (33-37); MEAN CORPUSCULAR VOLUME 89.3 fL (80-94); MONOCYTES # (AUTO) 1.1 K/uL (0.8-1.0); MONOCYTES % (AUTO) 7.7 % (1.7-9.3); NEUTROPHILS # (AUTO) 12.7 K/uL (1.8-7.7); NEUTROPHILS % (AUTO) 86.7 % (42.2-75.2); PLATELET COUNT (AUTO) 378 K/uL (140-450); RED BLOOD CELL COUNT(AUTO) 2.93 MIL/uL (4.20-6.10); RED CELL DISTRIBUTION WIDTH 16.2 % (11.6-13.7); WHITE BLOOD COUNT (AUTO) 14.7 K/uL (4.8-10.8)
--- NOTE | 2019-10-21 07:21 | NUR ---
ENDORSED PT TO DAY SHIFT NURSESISSY FOR CONTINUOUS CARE. PT IN STABLE CONDITION.
--- NOTE | 2019-10-21 07:26 | NUR ---
RECEIVED BEDSIDE REPORT FROM NIGHTSHIFT NURSE. PT RESTING IN BED. ABLE TO MAKE NEEDS KNOWN. RESPIRATIONS EVEN AND UNLABORED WITH NO SOB OR RESPIRATORY DISTRESS. SKIN WARM AND DRY TO TOUCH. IV SITE IN RIGHT FA 22G IS CLEAN, DRY, AND INTACT. SAFETY MEASURES IN PLACE. WILL CONTINUE TO MONITOR
[2019-10-21 09:00] VITALS: BP 142/57
[2019-10-21] MEDS: METOPROLOL 50 MG TAB PO SCH (09:00)
--- NOTE | 2019-10-21 09:15 | NUR ---
ENDORSED AT BEDSIDE TO DAYSHIFT NURSE POLA. SAFETY MEASURES IN PLACE. WILL CONTINUE TO MONITOR
--- NOTE | 2019-10-21 09:16 | NUR ---
RECEIVED REPORT FROM DAY SHIFT NURSE SISSY FOR CONTINUITY OF CARE. PT IN STABLE CONDITION. RESPIRATIONS EVEN AND UNLABORED, ROOM AIR. IV IN TACT AND PATENT. SAFETY MEASURES IN PLACE. BED IN LOW POSITION. BED ALARM ON. CALL LIGHT AT BEDSIDE. WILL CONTINUE TO MONITOR.
[2019-10-21] MEDS: LOSARTAN 50 MG TAB PO SCH (09:49)
[2019-10-21] MEDS: MULTIVITAMIN 1 TAB PO SCH (09:49)
[2019-10-21] MEDS: LACTOBACILLUS RHAMNOSUS GG 1 EACH CAP PO SCH (09:49)
--- NOTE | 2019-10-21 09:49 | NUR ---
GAVE ORDERED DUE MEDICATIONS AT THIS TIME. PATIENT TOLERATED WELL. BED IN LOW POSITION. CALL LIGHT AT BEDSIDE. BED ALARM ON. WILL CONTINUE TO MONITOR.
[2019-10-21] MEDS: NICOTINE TRANSD SYS 7 MG/24 HR PATCH TD SCH (09:50)
[2019-10-21 10:44] LABS: ANION GAP 10.5 (8-16); CARBON DIOXIDE 27.2 mmol/L (21-32); CHLORIDE 99 mmol/L (98-107); CREATININE 0.9 mg/dL (0.6-1.3); GLUCOSE 112 mg/dL (74-106); POTASSIUM 4.7 mmol/L (3.5-5.1); SODIUM SERUM 132 mmol/L (136-145)
[2019-10-21] MEDS ORDERED: PIPE1SOL IV (11:14)
--- NOTE | 2019-10-21 11:33 | NUR ---
PATIENT LYING IN BED SLEEP AT THIS TIME. RESPIRATIONS EVEN AND UNLABORED. BED IN LOW POSITION. BED ALARM ON. CALL LIGHT AT BEDSIDE. WILL CONTINUE TO MONITOR.
[2019-10-21 12:00] VITALS: BP 138/62
--- NOTE | 2019-10-21 13:24 | NUR ---
SPOKE WITH PATIENT WITH CASE MANAGEMENT DUANE ASH ABOUT DISCHARGE PLANNING GOING TO [facility] TODAY. PT VERBALIZED UNDERSTANDING AT THIS TIME. DUANE CASE MANAGEMENT WILL CALL FAMILY FOR UPDATE.
[2019-10-21 13:59] LABS: UREA NITROGEN, BLOOD 19 mg/dL (7-18)
[2019-10-21] MEDS ORDERED: CALCIUM CARBONATE 500 MG TAB.CHEW PO SCH (15:00)
--- NOTE | 2019-10-21 15:45 | NUR ---
ASSISTED WITH CHANGING PATIENT TO PREPARE FOR TRANSFER TO [facility]. PATIENT TOLERATED WELL. WILL CONTINUE TO MONITOR.
[2019-10-21 16:00] VITALS: BP 144/64
--- NOTE | 2019-10-21 16:15 | NUR ---
GAVE REPORT TO JEFF STAFF NURSE AT [facility] . ALL QUESTIONS ANSWERED AT THIS TIME. JEFF VERBALIZED UNDERSTANDING OF INSTRUCTIONS.
--- NOTE | 2019-10-21 16:40 | NUR ---
GAVE DISCHARGE INSTRUCTIONS TO PATIENT. PATIENT VERBALIZED UNDERSTANDING OF INSTRUCTIONS. GAVE REPORT TO TRANSPORT TEAM. ALL QUESTIONS ANSWERED, TRANSPORT TEAM VERBALIZED UNDERSTANDING OF INSTRUCTIONS. PATIENT DISCONNECTED FROM IV AND STEEL IRRIGATION TUBING. PATIENT PLACED ON GURNEY IN STABLE CONDITION WITH ALL BELONGINGS AT THIS TIME. PATIENT IN STABLE CONDITION.
[2019-10-22 05:55] LABS: MAGNESIUM 2.2 mg/dL (1.8-2.4)
== END 2019-10-21 16:40 | DRG 853 ==
LOC: MED 02:58 → MTU 05:57 → EEVIPCON 05:57 → MMU 10-15 10:32
PROVIDERS: ADMIT General Practice; ATTEND General Practice
PROC: 0V508ZZ Destruction of Prostate, Via Natural or Artificial Opening Endoscopic (ICD-10-PCS; 2019-10-13)
PROC: 0T5B8ZZ Destruction of Bladder, Via Natural or Artificial Opening Endoscopic (ICD-10-PCS; 2019-10-13)
PROC: 0TCB8ZZ Extirpation of Matter from Bladder, Via Natural or Artificial Opening Endoscopic (ICD-10-PCS; principal; 2019-10-13 16:20)
DX: A41.9 Sepsis, unspecified organism (principal); E43 Unspecified severe protein-calorie malnutrition; J96.01 Acute respiratory failure with hypoxia; N17.0 Acute kidney failure with tubular necrosis; J69.0 Pneumonitis due to inhalation of food and vomit; N12 Tubulo-interstitial nephritis, not specified as acute or chronic; E87.1 Hypo-osmolality and hyponatremia; I48.20 Chronic atrial fibrillation, unspecified; K86.1 Other chronic pancreatitis; Z68.20 Body mass index [BMI] 20.0-20.9, adult; I10 Essential (primary) hypertension; N40.0 Benign prostatic hyperplasia without lower urinary tract symptoms; J44.9 Chronic obstructive pulmonary disease, unspecified; E86.0 Dehydration; R31.0 Gross hematuria; K59.00 Constipation, unspecified; I35.9 Nonrheumatic aortic valve disorder, unspecified; Z79.01 Long term (current) use of anticoagulants; Z85.118 Personal history of other malignant neoplasm of bronchus and lung; Z87.891 Personal history of nicotine dependence; Z92.21 Personal history of antineoplastic chemotherapy; Z92.3 Personal history of irradiation; Z86.718 Personal history of other venous thrombosis and embolism; Z79.899 Other long term (current) drug therapy; Z03.818 Encounter for observation for suspected exposure to other biological agents ruled out
CPT/HCPCS: 36415; 71045; 74018; 76770; 80048; 80053; 80305; 81001; 82150; 82728; 82948; 83036; 83605; 83615; 83690; 83735; 83880; 84100; 84134; 84439; 84443; 84484; 85025; 85379; 85610; 85730; 86140; 87040; 87081; 87086; 93005; 93970; 94640; 96361; 96365; 96375; 97110; 97112; 97116; 97161-GP; 97530; 99285; J0696; J1815; J1885; J1956; J2001; J2270; J2405; J2704; J3010; J3475; J7030; J7042; J7060; J7626; Q0092